=== PATIENT | male | born 1950 | race Hispanic/Latino ===

== ENCOUNTER 2017-07-20 23:26 | Observation (INO) | payer OTHER ==
[2017-07-21 00:41] LABS: Absolute Lymphocytes (CBC) 1.1 K/uL (0.7-4.9); Absolute Monocytes 0.9 K/uL (0.1-1.3); Absolute Neutrophil 8.4 K/uL (1.8-8.0); Basophils % 0.4 % (0-1.3); Eosinophils % 0.2 % (0-4.4); Hematocrit 30.2 % (39.6-49.0); Lymphocytes % 10.2 % (15.3-44.8); MCV 93.4 fL (80-100); RBC Red Blood Cell Count 3.23 M/uL (4.33-5.43)
[2017-07-21 00:45] LABS: Protime INR 1.15
[2017-07-21] MEDS ORDERED: ONDANSETRON 4 MG/2 ML VIAL ONE (00:50)
[2017-07-21] MEDS ORDERED: MORPHINE 4 MG/ML SYR ONE (00:50)
[2017-07-21] MEDS ORDERED: NA CHLORIDE 0.9% 1,000 ML ONE (00:50)
[2017-07-21 01:13] LABS: Bicarbonate 29 mEq/L (21-31); Glucose Level 110 mg/dL (65-120); Potassium 3.7 mEq/L (3.6-5.0); Sodium Level 132 mEq/L (135-145)
[2017-07-21 01:16] LABS: ALT/SGPT 18 IU/L (10-60); AST/SGOT 15 IU/L (10-42); Albumin 3.6 g/dL (3.2-5.5); Alkaline Phosphatase 90 IU/L (42-121); BUN Blood Urea Nitrogen 11 mg/dL (6-20); Bilirubin Total 0.2 mg/dL (0.3-1.2); Glomerular Filtration Rate > 90 mL/min (=/>90); Protein, Total 6.9 g/dL (6.0-8.3)
--- NOTE | 2017-07-21 02:07 | EDPHYS ---
Physician Documentation [facility] Name: Willian De Age: 67 yrs Sex: Male : 1950 Arrival Date: 07/20/2017 Time: 23:28 Bed 15 Private MD: Gelacio Parks R ED Physician Randy Langston HPI: 07/21 00:07 This 67 yrs old Male presents to ER via Ambulatory with complaints of Arm Pain sivan - Swelling. 00:07 The patient or guardian complains of injury, pain, swelling. The complaints affect the sivan dorsal aspect of left forearm. Context: The problem was sustained at an unknown location. Onset: The symptoms/episode began/occurred 2 month(s) ago. Treatment prior to arrival includes: no previous treatment. Modifying factors: The symptoms are alleviated by remaining still, the symptoms are aggravated by movement, bending arm. Associated signs and symptoms: The patient has no apparent associated signs or symptoms. Severity of symptoms: At their worst the symptoms were mild, moderate, in the emergency department the symptoms are unchanged. The patient has not experienced similar symptoms in the past. Historical: - Allergies: 07/20 23:48 No Known Allergies; aa1 - PMHx: 23:48 CVA; Hypertension; Anxiety; lung cancer; chemotherapy; aa1 - PSHx: 23:48 None; aa1 - Immunization history:: Pneumococcal vaccine is up to date, Flu vaccine is up to date. - Social history:: Smoking status: Patient/guardian denies using tobacco. - Family history:: not pertinent. ROS: 07/21 00:07 Constitutional: Negative for fever, chills, and weight loss, Eyes: Negative for injury, sivan pain, redness, and discharge, ENT: Negative for injury, pain, and discharge, Neck: Negative for injury, pain, and swelling, Cardiovascular: Negative for chest pain, palpitations, and edema, Respiratory: Negative for shortness of breath, cough, wheezing, and pleuritic chest pain, Abdomen/GI: Negative for abdominal pain, nausea, vomiting, diarrhea, and constipation, Back: Negative for injury and pain, : Negative for injury, bleeding, discharge, and swelling, Neuro: Negative for headache, weakness, numbness, tingling, and seizure, Psych: Negative for depression, anxiety, suicide ideation, homicidal ideation, and hallucinations, Allergy/Immunology: Negative for hives, rash, and allergies, Endocrine: Negative for neck swelling, polydipsia, polyuria, polyphagia, and marked weight changes, Hematologic/Lymphatic: Negative for swollen nodes, abnormal bleeding, and unusual bruising. MS/extremity: Positive for pain, swelling, tenderness, warmth, of the dorsal aspect of left forearm. Exam: 00:07 Constitutional: This is a well developed, well nourished patient who is awake, alert, sivan and in no acute distress. Head/Face: Normocephalic, atraumatic. Eyes: Pupils equal round and reactive to light, extra-ocular motions intact. Lids and lashes normal. Conjunctiva and sclera are non-icteric and not injected. Cornea within normal limits. Periorbital areas with no swelling, redness, or edema. ENT: Nares patent. No nasal discharge, no septal abnormalities noted. Tympanic membranes are normal and external auditory canals are clear. Oropharynx with no redness, swelling, or masses, exudates, or evidence of obstruction, uvula midline. Mucous membranes moist. Neck: Trachea midline, no thyromegaly or masses palpated, and no cervical lymphadenopathy. Supple, full range of motion without nuchal rigidity, or vertebral point tenderness. No Meningismus. Chest/axilla: Normal chest wall appearance and motion. Nontender with no deformity. No lesions are appreciated. Cardiovascular: Regular rate and rhythm with a normal S1 and S2. No gallops, murmurs, or rubs. Normal PMI, no JVD. No pulse deficits. Respiratory: Lungs have equal breath sounds bilaterally, clear to auscultation and percussion. No rales, rhonchi or wheezes noted. No increased work of breathing, no retractions or nasal flaring. Abdomen/GI: Soft, non-tender, with normal bowel sounds. No distension or tympany. No guarding or rebound. No evidence of tenderness throughout. Back: No spinal tenderness. No costovertebral tenderness. Full range of motion. Male : Normal genitalia with no discharge or lesions. Skin: Warm, dry with normal turgor. Normal color with no rashes, no lesions, and no evidence of cellulitis. Neuro: Awake and alert, GCS 15, oriented to person, place, time, and situation. Cranial nerves II-XII grossly intact. Motor strength 5/5 in all extremities. Sensory grossly intact. Cerebellar exam normal. Normal gait. Psych: Awake, alert, with orientation to person, place and time. Behavior, mood, and affect are within normal limits. 00:07 Musculoskeletal/extremity: ROM: full active range of motion, full passive range of motion, Circulation is intact in all extremities. Sensation intact. Compartment Syndrome exam of affected extremity: is normal. DVT Exam: negative Homans' sign noted on exam, no appreciated bluish discoloration, pain, swelling, tenderness, erythema, that is mild, increased warmth, of the left arm. Vital Signs: 07/20 23:48 BP 144 / 82; Pulse 105; Resp 20; Temp 98.4; Pulse Ox 99% on R/A; Weight 78.02 kg; aa1 Height 6 ft. 1 in. (185.42 cm); Pain 0/10; 07/21 00:43 BP 127 / 73; Pulse 93; Resp 18; Pulse Ox 98% on R/A; aa1 01:26 BP 133 / 86; Pulse 97; Resp 18; Pulse Ox 99% on R/A; mt 02:30 BP 128 / 77; Pulse 95; Resp 18; Pulse Ox 98% on R/A; Pain 0/10; aa1 07/20 23:48 Body Mass Index 22.69 (78.02 kg, 185.42 cm) [facility] MDM: 00:04 Patient medically screened. [facility] 00:11 Data reviewed: vital signs, nurses notes, lab test result(s), radiologic studies, plain sivan films, ultrasound. 07/21 00:07 Order name: CBC with Diff [facility] 07/21 00:07 Order name: Comprehensive Metabolic Panel [facility] 07/21 00:07 Order name: PT-INR [facility] 07/21 00:07 Order name: Ptt, Activated [facility] 07/21 00:07 Order name: Blood Culture Adult (2) [facility] 07/21 00:44 Order name: CBC with Automated Diff [facility] 07/21 00:07 Order name: Forearm Left XRAY [facility] 07/21 00:07 Order name: US Extremity Venous Uni Ltd [facility] 07/21 00:54 Order name: Protime (+INR); Complete Time: 02:04 EDMS 07/21 00:54 Order name: PTT, Activated Partial Thromb; Complete Time: 02:04 EDMS 07/21 01:13 Order name: Comprehensive Metabolic Panel; Complete Time: 02:04 EDMS 07/21 04:10 Order name: Manual Differential EDMS Administered Medications: 00:35 CANCELLED (med not available): fentaNYL (PF) 25 mcg IVP once aa1 00:42 Drug: morphine 2 mg Route: IVP; Site: right antecubital; aa1 01:45 Follow up: Response: No adverse reaction; Pain is decreased aa1 00:43 Drug: NS 0.9% 1000 ml Route: IV; Rate: 125 ml/hr; Site: right antecubital; aa1 04:07 Follow up: IV Status: Infusion continued upon admission aa1 00:43 Drug: Zofran 4 mg Route: IVP; Site: right antecubital; aa1 01:45 Follow up: Response: No adverse reaction aa1 02:20 Drug: vancoMYCIN 1 grams Route: IVPB; Infused Over: 2 hrs; Site: right antecubital; aa1 05:00 Follow up: IV Status: Completed infusion aa1 05:01 Drug: Zosyn 3.375 grams Route: IVPB; Infused Over: 60 mins; Site: right antecubital; aa1 05:34 Follow up: IV Status: Completed infusion aa1 Disposition: 07/21/17 02:06 Hospitalization ordered by Gelacio Parks for Observation. Preliminary diagnosis are Cellulitis and acute lymphangitis of other parts of limb, Laceration with foreign body of left forearm. - Bed requested for Telemetry/MedSurg (observation). - Status is Observation. hj - Condition is Stable. - Problem is new. - Symptoms have improved. UTI on Admission? No Signatures: Dispatcher [employer] EDMS Arina Ibarra RN RN kl Kern, Alissa, RN RN aa Randy Langston MD MD cha Joaquin, Henry, RN RN Corrections: (The following items were deleted from the chart) 00:35 00:07 fentaNYL (PF) 25 mcg IVP once ordered. sivan bone
--- NOTE | 2017-07-21 02:07 | ER ---
Nurse's Notes [facility] Name: Willian De Age: 67 yrs Sex: Male : 1950 Arrival Date: 07/20/2017 Time: 23:28 Bed 15 Private MD: Gelacio Parks R Diagnosis: Cellulitis and acute lymphangitis of other parts of limb;Laceration with foreign body of left forearm Presentation: 07/20 23:47 Presenting complaint: Patient states: redness and swelling to L forearm for past aa1 several days. Denies injury. Transition of care: patient was not received from another setting of care. Onset of symptoms was July 16, 2017. Care prior to arrival: None. 23:47 Method Of Arrival: Ambulatory aa1 23:47 Acuity: JARVIS 3 aa1 Historical: - Allergies: 23:48 No Known Allergies; aa1 - PMHx: 23:48 CVA; Hypertension; Anxiety; lung cancer; chemotherapy; aa1 - PSHx: 23:48 None; aa1 - Immunization history:: Pneumococcal vaccine is up to date, Flu vaccine is up to date. - Social history:: Smoking status: Patient/guardian denies using tobacco. - Family history:: not pertinent. Screenin:40 Abuse screen: Denies threats or abuse. Denies injuries from another. Nutritional aa1 screening: No deficits noted. Tuberculosis screening: No symptoms or risk factors identified. Fall Risk None identified. Assessment: 23:40 General: Appears in no apparent distress. comfortable, Behavior is calm, cooperative, aa1 appropriate for age. Pain: Denies pain. Neuro: Level of Consciousness is awake, alert, obeys commands, Oriented to person, place, time, situation, Moves all extremities. Full function Gait is steady. Respiratory: Airway is patent Respiratory effort is even, unlabored, Respiratory pattern is regular, symmetrical. GI: No signs and/or symptoms were reported involving the gastrointestinal system. : No signs and/or symptoms were reported regarding the genitourinary system. EENT: No signs and/or symptoms were reported regarding the EENT system. Derm: Skin is intact, is healthy with good turgor, Skin is pink, warm \T\ dry. Musculoskeletal: Circulation, motion, and sensation intact. Capillary refill < 3 seconds. 23:40 Derm: redness noted to left forearm with mild swelling. aa1 03/22 00:45 Reassessment: Patient appears in no apparent distress at this time. Patient and/or aa1 family updated on plan of care and expected duration. Pain level reassessed. Patient is alert, oriented x 3, equal unlabored respirations, skin warm/dry/pink. Awaiting provider reassessment. 01:30 Reassessment: Patient appears in no apparent distress at this time. Patient and/or aa1 family updated on plan of care and expected duration. Pain level reassessed. Patient is alert, oriented x 3, equal unlabored respirations, skin warm/dry/pink. Awaiting admission. 02:30 Reassessment: Patient appears in no apparent distress at this time. Patient and/or aa1 family updated on plan of care and expected duration. Pain level reassessed. Patient is alert, oriented x 3, equal unlabored respirations, skin warm/dry/pink. Pt placed in ER Hold. 07:24 General: Appears in no apparent distress. uncomfortable, Behavior is calm, cooperative, hj appropriate for age. Pain: Complains of pain in left arm and dorsal aspect of left forearm. Neuro: Level of Consciousness is awake, alert, obeys commands, Oriented to person, place, time, situation. Cardiovascular: Capillary refill < 3 seconds Patient's skin is warm and dry. Respiratory: Airway is patent Respiratory effort is even, unlabored, Respiratory pattern is regular, symmetrical. GI: No signs and/or symptoms were reported involving the gastrointestinal system. : No signs and/or symptoms were reported regarding the genitourinary system. EENT: No signs and/or symptoms were reported regarding the EENT system. Derm: No signs and/or symptoms reported regarding the dermatologic system. Musculoskeletal: No signs and/or symptoms reported regarding the musculoskeletal system. Vital Signs: 07/20 23:48 BP 144 / 82; Pulse 105; Resp 20; Temp 98.4; Pulse Ox 99% on R/A; Weight 78.02 kg; aa1 Height 6 ft. 1 in. (185.42 cm); Pain 0/10; 07/21 00:43 BP 127 / 73; Pulse 93; Resp 18; Pulse Ox 98% on R/A; aa1 01:26 BP 133 / 86; Pulse 97; Resp 18; Pulse Ox 99% on R/A; mt 02:30 BP 128 / 77; Pulse 95; Resp 18; Pulse Ox 98% on R/A; Pain 0/10; aa1 07/20 23:48 Body Mass Index 22.69 (78.02 kg, 185.42 cm) aa1 ED Course: 07/20 23:28 Patient arrived in ED. am2 23:28 Gelacio Parks MD is Private Physician. am2 23:38 Arm band placed on right wrist. Patient placed in an exam room, on a stretcher. aa1 23:40 Patient has correct armband on for positive identification. Bed in low position. Call aa1 light in reach. Pulse ox on. NIBP on. 23:46 Lashonda Yoder RN is Primary Nurse. aa1 23:47 Triage completed. aa1 07/21 00:04 Randy Langston MD is Attending Physician. sivan 00:10 Initial lab(s) drawn, by az, sent to lab. First set of blood cultures drawn by me. aa1 Inserted saline lock: 20 gauge in right antecubital area, using aseptic technique. Blood collected. 00:25 Second set of blood cultures drawn by me. aa1 00:43 X-ray completed. Portable x-ray completed in exam room. Patient tolerated procedure kw well. 02:05 Gelacio Parks MD is Hospitalizing Provider. [facility] 02:30 No provider procedures requiring assistance completed. Patient admitted, IV remains in aa1 place. 07:02 Report received from TORY Gallego. hj Administered Medications: 00:35 CANCELLED (med not available): fentaNYL (PF) 25 mcg IVP once aa1 00:42 Drug: morphine 2 mg Route: IVP; Site: right antecubital; aa1 01:45 Follow up: Response: No adverse reaction; Pain is decreased aa1 00:43 Drug: NS 0.9% 1000 ml Route: IV; Rate: 125 ml/hr; Site: right antecubital; aa1 04:07 Follow up: IV Status: Infusion continued upon admission aa1 00:43 Drug: Zofran 4 mg Route: IVP; Site: right antecubital; aa1 01:45 Follow up: Response: No adverse reaction aa1 02:20 Drug: vancoMYCIN 1 grams Route: IVPB; Infused Over: 2 hrs; Site: right antecubital; aa1 05:00 Follow up: IV Status: Completed infusion aa1 05:01 Drug: Zosyn 3.375 grams Route: IVPB; Infused Over: 60 mins; Site: right antecubital; aa1 05:34 Follow up: IV Status: Completed infusion aa1 Outcome: 02:06 Decision to Hospitalize by Provider. [facility] 02:30 Admitted to ER Hold. Please see [facility] for further documentation. aa1 02:30 Condition: good 02:30 Instructed on the need for admit, Demonstrated understanding of instructions. 08:09 Patient left the ED. hj Signatures: Lashonda Yoder, RN RN aa1 Randy Langston MD MD cha Whitley, Kimberlee kw Joaquin, Henry, RN RN Racquel Ham Moriah mt
[2017-07-21] MEDS ORDERED: ACETAMINOPHEN 500 MG TAB PO PRN (02:11)
[2017-07-21] MEDS ORDERED: ONDANSETRON 4 MG/2 ML VIAL IV PRN (02:11)
[2017-07-21] MEDS ORDERED: VANCOMYCIN/NS 1 gm 1 GM/250 ML BAG ONE (02:27)
[2017-07-21 04:10] LABS: Blood Morphology Comment NOT SEEN (NOT SEEN); Platelet Estimate ADEQ
[2017-07-21] MEDS ORDERED: PIPER/TAZO/NS 3.375gm 3.375 GM/100 ML BAG ONE (04:18)
[2017-07-21 04:51] VITALS: BMI 22.6
[2017-07-21] MEDS ORDERED: PIPER/TAZO/NS 3.375gm 3.375 GM/100 ML BAG IVPB SCH (06:00)
--- NOTE | 2017-07-21 08:56 | RAD REPORT ---
EXAM DESCRIPTION: RAD - Forearm Left - 07/21/2017 12:46 am CLINICAL HISTORY: Pain and swelling to left forearm. COMPARISON: None. FINDINGS: Soft tissue swelling is seen along the palmar soft tissues of the proximal forearm. No fra cture, dislocation or aggressive marrow lesion. Prominent olecranon spur seen. IMPRESSION: Mild to moderate soft tissue swelling proximal left forearm palmar soft tissues.
[2017-07-21] MEDS ORDERED: VANCOMYCIN 1GM/D5W 1 GM/200 ML BAG IV SCH (09:00)
--- NOTE | 2017-07-21 09:00 | RAD REPORT ---
EXAM DESCRIPTION: VAS - Extremity Venous Uni Ltd - 07/21/2017 1:53 am CLINICAL HISTORY: Left upper extremity swelling. COMPARISON: None. FINDINGS: Left upper extremity venous system was interrogated with Doppler technique. Normal flow, c ompressibility and augmentation was noted. There is no DVT present.At the site of palpable abnormalit y in the left forearm, a superficial thrombosed vein is suspected. IMPRESSION: No evidence of left upper extremity deep venous thrombosis. Superficial thrombosed vein suspected in the left forearm suggesting thrombophlebitis.
[2017-07-21] MEDS: NA CHLORIDE 0.9% 1,000 ML IV SCH ×2 (10:17→13:00)
[2017-07-21] MEDS: MORPHINE 2 MG/ML SYR IV PRN ×2 (10:18→20:14)
[2017-07-21] MEDS: FAMOTIDINE 20 MG/2 ML VIAL IV SCH ×2 (10:18→20:14)
[2017-07-21] MEDS: PIPER/TAZO/NS 3.375gm 3.375 GM/100 ML BAG IVPB SCH ×2 (10:20→17:41)
[2017-07-21] MEDS: VANCOMYCIN 1.5 GM in NA CHLORIDE 0.9% 500 ML IVPB SCH (16:49)
[2017-07-21] MEDS ORDERED: ALPRAZOLAM 0.5 MG TABLET PO PRN (18:20)
[2017-07-21] MEDS ORDERED: GUAIFENESIN PO PRN (18:20)
[2017-07-21] MEDS ORDERED: CODEINE PHOSPHATE PO PRN (18:20)
[2017-07-21] MEDS ORDERED: GUAIFENESIN/CODEINE 5ML UCUP PO PRN (18:29)
[2017-07-21] MEDS ORDERED: HOME MED [ALBUTEROL INHALER 60 PUFF/8 GM] IH SCH (18:45)
[2017-07-21] MEDS: ATORVASTATIN 20 MG TAB PO SCH (20:14)
[2017-07-21] MEDS: DEXAMETHASONE 4 MG TAB PO SCH (20:14)
[2017-07-21 20:18] LABS: Urine Appearance CLEAR; Urine Bilirubin NEGATIVE (NEG); Urine Blood NEGATIVE (NEG); Urine Color YELLOW; Urine Glucose NEGATIVE (NEG); Urine Protein NEGATIVE (NEG); Urine Urobilinogen 0.2 mg/dL (0.2-1.0); Urine pH 7.5 (5.0-7.0)
[2017-07-21 20:21] LABS: Urine Microscopic Reflex NO UMIC
--- NOTE | 2017-07-21 22:30 | CON ---
Date of Consultation: 07/21/2017 Reason For Services: Left forearm abscess. History Of Present Illness: This is a case of a 67-year-old patient, who comes to us with a cellulit is, swelling and increased temperature over the left proximal forearm. The patient states previously , he had an IV in that region. He got swelling, got red, got warm and diagnosed with cholecystitis, also thrombophlebitis and admitted to the hospital. He received chemotherapy through his the veins. He has no Port-A-Cath. He denies any dysuria, hematuria, hematochezia, or melena. He denies any re cent traveling out of the country. He denies any trauma over that area other than previous IVs. Past Medical History: Include lung cancer, hypertension, and CVA. Allergies: NONE. Family History: Noncontributory. Medications: Reviewed including chemotherapy. Review: Constitutional: Denies any fever. Respiratory: Denies any shortness of breath. Skin: As above. Gastrointestinal: Denies any melena or hematochezia. Physical Examination: General: The patient is awake and alert. HEENT: Pupils are anicteric. Neck: Supple. Lungs: Bilateral breath sounds. Abdomen: Soft and depressible. Extremities: Over the left proximal forearm, the patient has an area of induration about 7 x 7 cm wi th may be some component with thrombophlebitis. It is warm and has fluctuance present at the beginni ng of an abscess. No open wounds in that area. Peripheral pulse is still present. No cyanosis of t he hand. Laboratory Data: Blood work shows WBC count 7.4, hemoglobin of 10.4. INR is 1.15. Potassium 3.7. Forearm x-rays interpreted by Dr. Em as [id number] soft tissue swelling of the proximal left forearm. Venous study of the extremity shows the finding consistent with possible thrombophlebitis o jose r the area of concern. Assessment: This is a 67-year-old patient with thrombophlebitis in the left proximal forearm with ce llulitis and possible abscess. Incision and drainage of that area fully explained to the patient, wh ich include, but are not limited to infection, bleeding, damage to adjacent structures, anesthesia co mplication, nonhealing wound, AR, and even . He has fluctuance in that area consistent with an abscess with increased temperature and erythema. He understands he may require wound care. JOSTIN/MOR Voice ID: [id number] Report ID: [id number]
[2017-07-22] MEDS: MORPHINE 2 MG/ML SYR IV PRN (00:15)
[2017-07-22] MEDS: PIPER/TAZO/NS 3.375gm 3.375 GM/100 ML BAG IVPB SCH ×3 (00:15→16:41)
[2017-07-22] MEDS: NA CHLORIDE 0.9% 1,000 ML IV SCH ×3 (00:16→22:07)
[2017-07-22] MEDS: VANCOMYCIN 1.5 GM in NA CHLORIDE 0.9% 500 ML IVPB SCH ×2 (02:51→13:47)
[2017-07-22 05:23] LABS: Absolute Lymphocytes (CBC) 0.5 K/uL (0.7-4.9); Absolute Monocytes 0.2 K/uL (0.1-1.3); Absolute Neutrophil 10.2 K/uL (1.8-8.0); Basophils % 0.1 % (0-1.3); Hematocrit 31.2 % (39.6-49.0); Lymphocytes % 4.8 % (15.3-44.8); MCH 32.5 pg (27.0-35.0); MCV 92.5 fL (80-100); MPV 7.1 fL (7.6-11.3); Monocytes % 1.7 % (3.3-12.3); RBC Red Blood Cell Count 3.38 M/uL (4.33-5.43)
[2017-07-22 05:51] LABS: BUN Blood Urea Nitrogen 8 mg/dL (6-20); Bicarbonate 25 mEq/L (21-31); Glomerular Filtration Rate > 90 mL/min (=/>90); Glucose Level 147 mg/dL (65-120); Potassium 4.8 mEq/L (3.6-5.0); Sodium Level 133 mEq/L (135-145)
[2017-07-22] MEDS: PANTOPRAZOLE 40MG TABLET PO SCH (07:30)
--- NOTE | 2017-07-22 07:47 | HP ---
Date of Admission: 07/21/2017 Chief Complaint: Pain, left forearm. History Of Present Illness: A 67-year-old male who is known to have lung cancer, who is on Oncology Service, was brought to the emergency room because of pain, swelling of the left forearm. The patien t was diagnosed to have possible cellulitis, possible foreign body in the vein. The patient denied any history of fever, chills, rigors. Past Medical History: Positive for COPD, recently diagnosed lung cancer. He also has history of pre vious stroke and hypertension. Family History: Noncontributory. Personal History: The patient is a previous smoker. Allergies: NONE. Review of Systems: The patient denies any chest pain, hemoptysis. Physical Examination: General: Reveals a 67-year-old male, fully alert. HEENT: Negative. Neck: Supple. JVD negative. Chest: Scattered wheezes. Heart: Regular. Abdomen: Soft. Extremities: There is about 3-4 inches long area of induration and redness and tenderness over elbow area on the ventral side. Radial pulses present. Laboratory: White count normal. Chem profile normal. Venous study, superficial phlebitis. Assessment: 1.Possible superficial phlebitis. 2.Rule out foreign body. 3.Lung cancer, on chemotherapy. 4.Chronic obstructive pulmonary disease. 5.Old cerebrovascular accident. 6.Hypertension. Plan: The patient is due to be seen and evaluated and treated by Dr. Patel as a surgical consult to see whether he has a foreign body left in the vein, which has not been demonstrated on the x-ray o r the venous study. ESTELLE/MOR Voice ID: [id number]
[2017-07-22] MEDS: VALSARTAN 160 MG TAB PO SCH (08:09)
[2017-07-22] MEDS: DEXAMETHASONE 4 MG TAB PO SCH ×2 (08:09→22:08)
[2017-07-22] MEDS: ASPIRIN EC 81 MG TAB PO SCH (08:09)
[2017-07-22] MEDS: FAMOTIDINE 20 MG/2 ML VIAL IV SCH ×2 (08:10→22:08)
[2017-07-22] MEDS ORDERED: LIDOCAINE 1% MPF 5 ML VIAL SQ ONE (15:00)
[2017-07-22] MEDS: ATORVASTATIN 20 MG TAB PO SCH (22:08)
[2017-07-23] MEDS: PIPER/TAZO/NS 3.375gm 3.375 GM/100 ML BAG IVPB SCH ×2 (00:50→09:14)
--- NOTE | 2017-07-23 00:53 | OP ---
Date of Procedure: 07/22/2017 Surgeon: Bhupinder Patel MD Preoperative Diagnoses: Lung cancer with a thrombophlebitis of left forearm and also abscess and leo lulitis of the proximal forearm. Postoperative Diagnoses: Lung cancer with a thrombophlebitis of left forearm and also abscess and ce llulitis of the proximal forearm. Procedures: Incision and drainage of a left forearm abscess. Anesthesia: Local. Complication: None. Packing: Wet-to-dry. Specimen: Culture. Indications: This is the case of a 67-year-old patient, who comes to us, on chemotherapy. He has a lump on the left forearm with erythema, increased temperature with tenderness, venous Doppler was don e previously shows thrombophlebitis. Also the patient has some redness over the area with fluctuance consistent with an abscess. He is not getting better today. It is worse, so we offer him incision and drainage with benefits, alternatives, and risks including, but not limited to infection, bleeding , damage to adjacent structures, anesthesia complication, nonhealing wound, AZ, and even . He a lso understands this may not relieve any symptoms. He might need more than one surgical intervention . He was also explained that if the does not improve, he may even have to have . Description Of Procedure: The patient was placed in supine position. The left forearm was prepped a nd draped in a sterile fashion. Lidocaine 1% plain injected for local anesthetic, followed by sharp incision of the skin. This was taken down to the subcutaneous tissue. Muscle looks intact. Fascia looked intact viable. A small amount of pus was removed from the area with an irrigation done after we re-culture the area. Hemostasis obtained and the area was packed with wet-to-dry dress ing. The patient tolerated the procedure well. The patient was sent to recovery room in stable cond ition. The patient left in their own room in stable condition. Beginning of this, time-out was call ed before the procedure was done. The patient may be discharged with antibiotics by mouth and follow up in my office in 1 week. JOSTIN/MOR Voice ID: [id number] Report ID: [id number]
[2017-07-23] MEDS: NA CHLORIDE 0.9% 1,000 ML IV SCH (04:00)
[2017-07-23 08:11] VITALS: BP 136/75; TEMP 97.2
[2017-07-23] MEDS: PANTOPRAZOLE 40MG TABLET PO SCH (09:13)
[2017-07-23] MEDS: DEXAMETHASONE 4 MG TAB PO SCH (09:13)
[2017-07-23] MEDS: ASPIRIN EC 81 MG TAB PO SCH (09:13)
[2017-07-23] MEDS: VALSARTAN 160 MG TAB PO SCH (09:13)
[2017-07-23] MEDS: FAMOTIDINE 20 MG/2 ML VIAL IV SCH (09:13)
[2017-07-23 12:08] VITALS: O2SAT 98
[2017-07-23] MEDS ORDERED: VANCOMYCIN 1.5 GM in NA CHLORIDE 0.9% 500 ML IVPB SCH (14:00)
--- NOTE | 2017-08-22 01:09 | DS ---
Date of Discharge: 07/23/2017 Final Diagnoses: 1.Abscess, left arm. 2.Chronic obstructive pulmonary disease. 3.Recently diagnosed lung cancer. 4.Old cerebrovascular accident. Hospital Course: A 67-year-old male was brought to the emergency room because of pain and swelling. The patient initially thought to have foreign body and cellulitis, however there was a fluctuant mas s. This was incised and drained by Dr. Patel. There was no evidence of foreign body. The patien t was continued on IV antibiotics and discharged on oral antibiotic on 07/23/2017. The patient had no further complications. Laboratory Data: Please refer to the chart. ESTELLE/MOR Voice ID: [id number] Report ID: [id number]
== END 2017-07-23 11:52 | disposition home or self-care (01) ==
LOC: ER 23:26 → ERHOLD 07-21 02:16 → 4TH 07-21 05:43
PROVIDERS: ADMIT Internal Medicine; ATTEND Internal Medicine
PROC: 0J9H0ZZ Drainage of Left Lower Arm Subcutaneous Tissue and Fascia, Open Approach (ICD-10-PCS; principal; 2017-07-22)
DX: I80.8 Phlebitis and thrombophlebitis of other sites (principal); L02.414 Cutaneous abscess of left upper limb; J44.9 Chronic obstructive pulmonary disease, unspecified; C34.90 Malignant neoplasm of unspecified part of unspecified bronchus or lung; Z86.73 Personal history of transient ischemic attack (TIA), and cerebral infarction without residual deficits; Z87.891 Personal history of nicotine dependence
CPT/HCPCS: 10060; 36415 ×2; 73090; 80048; 80053; 80202; 81003; 82962 ×3; 85025 ×2; 85610; 85730; 87040 ×2; 87070; 87075; 87205; 93971; 96361; 96365; 96366; 96367; 96375; 99285; G0378 ×2; J2270 ×3; J2405; J2543 ×4; J3370; J7030 ×4

== ENCOUNTER 2017-08-25 22:07 | Inpatient (IN) | payer OTHER ==
[2017-08-25] MEDS ORDERED: NA CHLORIDE 0.9% 1,000 ML ONE (22:35)
[2017-08-25] MEDS ORDERED: ASPIRIN EC 81 MG TAB PO ONE (22:43)
[2017-08-25] MEDS ORDERED: ONDANSETRON 4 MG/2 ML VIAL ONE (22:44)
[2017-08-25 22:47] LABS: Absolute Lymphocytes (CBC) 1.2 K/uL (0.7-4.9); Absolute Monocytes 0.3 K/uL (0.1-1.3); Absolute Neutrophil 43.5 K/uL (1.8-8.0); Basophils % 0.1 % (0-1.3); Hematocrit 26.8 % (39.6-49.0); Lymphocytes % 2.6 % (15.3-44.8); MCH 31.7 pg (27.0-35.0); MCV 92.2 fL (80-100); MPV 6.8 fL (7.6-11.3); Monocytes % 0.7 % (3.3-12.3)
[2017-08-25 23:07] LABS: Bicarbonate 24 mEq/L (21-31); Glucose Level 113 mg/dL (65-120); Lipase 19 U/L (22-51); Potassium 3.9 mEq/L (3.6-5.0); Sodium Level 131 mEq/L (135-145)
[2017-08-25 23:13] LABS: ALT/SGPT 13 IU/L (10-60); AST/SGOT 21 IU/L (10-42); Albumin 4.1 g/dL (3.2-5.5); Alkaline Phosphatase 71 IU/L (42-121); BUN Blood Urea Nitrogen 12 mg/dL (6-20); Bilirubin Direct 0.1 mg/dL (0-0.2); Bilirubin Total 0.4 mg/dL (0.3-1.2); CKMB Creatine Kinase MB 2.2 ng/ml (0.3-4.0); Creatine Phosphokinase 59 IU/L (22-269); Magnesium 1.9 mg/dL (1.8-2.5); Protein, Total 7.5 g/dL (6.0-8.3); Protime INR 1.01
[2017-08-25 23:34] LABS: Blood Morphology Comment NOT SEEN (NOT SEEN); Platelet Estimate ADEQ
[2017-08-25 23:41] LABS: Urine Blood NEGATIVE (NEG); Urine Glucose NEGATIVE (NEG); Urine Protein NEGATIVE (NEG); Urine Specific Gravity <1.005 (1.005-1.030)
[2017-08-25 23:42] LABS: Thyroid Stimulating Hormone 1.47 uIU/mL (0.34-5.60)
--- NOTE | 2017-08-26 00:08 | EDPHYS ---
Physician Documentation [facility] Name: Willian De Age: 67 yrs Sex: Male : 1950 Arrival Date: 08/25/2017 Time: 22:09 Bed 2 Private MD: ED Physician Randy Langston HPI: 08/25 22:42 This 67 yrs old Male presents to ER via Ambulatory with complaints of Chest sivan Pain. 22:42 The patient or guardian reports chest pain that is located primarily in the substernal sivan area. Onset: 4 day(s) ago. The pain does not radiate. Associated signs and symptoms: Pertinent positives: nausea, vomiting. The chest pain is described as sharp. Duration: The patient or guardian reports multiple episodes, with no pattern. Modifying factors: The symptoms are alleviated by nothing. the symptoms are aggravated by nothing. Severity of pain: At its worst the pain was moderate in the emergency department the pain is unchanged. The patient has experienced similar episodes in the past, a few times. Historical: - Allergies: 22:22 No Known Allergies; fc - Home Meds: 22:22 Unable to obtain [Active]; fc - PMHx: 22:22 Anxiety; chemotherapy; CVA; Hypertension; Lung Cancer; fc - PSHx: 22:22 Arm Surg; fc - Immunization history:: Last tetanus immunization: up to date. - Social history:: Smoking status: Patient/guardian denies using tobacco, the patient reports quitting approximately .5 years ago. - Family history:: not pertinent. ROS: 22:42 Constitutional: Negative for fever, chills, and weight loss, Eyes: Negative for injury, sivan pain, redness, and discharge, ENT: Negative for injury, pain, and discharge, Neck: Negative for injury, pain, and swelling, Respiratory: Negative for shortness of breath, cough, wheezing, and pleuritic chest pain, Abdomen/GI: Negative for abdominal pain, nausea, vomiting, diarrhea, and constipation, Back: Negative for injury and pain, : Negative for injury, bleeding, discharge, and swelling, MS/Extremity: Negative for injury and deformity, Skin: Negative for injury, rash, and discoloration, Neuro: Negative for headache, weakness, numbness, tingling, and seizure, Psych: Negative for depression, anxiety, suicide ideation, homicidal ideation, and hallucinations, Allergy/Immunology: Negative for hives, rash, and allergies, Endocrine: Negative for neck swelling, polydipsia, polyuria, polyphagia, and marked weight changes, Hematologic/Lymphatic: Negative for swollen nodes, abnormal bleeding, and unusual bruising. 22:42 Cardiovascular: Positive for chest pain, of the anterior aspect of left upper chest and left breast. Exam: 22:42 Constitutional: This is a well developed, well nourished patient who is awake, alert, sivan and in no acute distress. Head/Face: Normocephalic, atraumatic. Eyes: Pupils equal round and reactive to light, extra-ocular motions intact. Lids and lashes normal. Conjunctiva and sclera are non-icteric and not injected. Cornea within normal limits. Periorbital areas with no swelling, redness, or edema. ENT: Nares patent. No nasal discharge, no septal abnormalities noted. Tympanic membranes are normal and external auditory canals are clear. Oropharynx with no redness, swelling, or masses, exudates, or evidence of obstruction, uvula midline. Mucous membranes moist. Neck: Trachea midline, no thyromegaly or masses palpated, and no cervical lymphadenopathy. Supple, full range of motion without nuchal rigidity, or vertebral point tenderness. No Meningismus. Chest/axilla: Normal chest wall appearance and motion. Nontender with no deformity. No lesions are appreciated. Cardiovascular: Regular rate and rhythm with a normal S1 and S2. No gallops, murmurs, or rubs. Normal PMI, no JVD. No pulse deficits. Respiratory: Lungs have equal breath sounds bilaterally, clear to auscultation and percussion. No rales, rhonchi or wheezes noted. No increased work of breathing, no retractions or nasal flaring. Abdomen/GI: Soft, non-tender, with normal bowel sounds. No distension or tympany. No guarding or rebound. No evidence of tenderness throughout. Back: No spinal tenderness. No costovertebral tenderness. Full range of motion. Male : Normal genitalia with no discharge or lesions. MS/ Extremity: Pulses equal, no cyanosis. Neurovascular intact. Full, normal range of motion. Neuro: Awake and alert, GCS 15, oriented to person, place, time, and situation. Cranial nerves II-XII grossly intact. Motor strength 5/5 in all extremities. Sensory grossly intact. Cerebellar exam normal. Normal gait. Psych: Awake, alert, with orientation to person, place and time. Behavior, mood, and affect are within normal limits. 22:42 Skin: Appearance: Color: pale, Temperature: normal temperature, Moisture: normal moisture, petechiae, not noted, ecchymosis, not noted, flushing, not noted, diaphoresis is not appreciated. Vital Signs: 22:10 BP 162 / 94; Pulse 119; Resp 16; Temp 98.2(O); Pulse Ox 100% on R/A; Weight 78.47 kg fc (R); Height 6 ft. 2 in. (187.96 cm) (R); Pain 5/10; 08/26 00:40 BP 137 / 82; Pulse 97; Resp 16; Temp 98.2(O); Pulse Ox 100% on R/A; Pain 0/10; ak1 08/25 22:10 Body Mass Index 22.21 (78.47 kg, 187.96 cm) fc MDM: 08/25 22:20 Patient medically screened. [facility] 22:42 Data reviewed: vital signs. [facility] 08/25 22:23 Order name: Basic Metabolic Panel; Complete Time: 00:03 bp 08/25 22:23 Order name: BNP; Complete Time: 00:03 08/25 22:23 Order name: CBC with Diff; Complete Time: 00:03 bp 08/25 22:23 Order name: Ckmb; Complete Time: 00:03 bp 08/25 22:23 Order name: CPK; Complete Time: 00:03 08/25 22:23 Order name: LFT's; Complete Time: 00:03 08/25 22:23 Order name: Magnesium; Complete Time: 00:03 bp 08/25 22:23 Order name: PT-INR; Complete Time: 00:03 08/25 22:23 Order name: Ptt, Activated; Complete Time: 00:03 08/25 22:23 Order name: Troponin (emerg Dept Use Only); Complete Time: 00:03 08/25 22:32 Order name: Lipase [facility] 08/25 22:32 Order name: TSH [facility] 08/25 22:23 Order name: XRAY Chest (1 view) 08/25 22:40 Order name: Type And Screen [facility] 08/25 22:42 Order name: CT Chest For PE Angio [facility] 08/25 22:46 Order name: Lipase; Complete Time: 00:03 EDTX 08/25 22:46 Order name: Thyroid Stimulating Hormone; Complete Time: 00:03 EDTX 08/25 22:51 Order name: Manual Differential; Complete Time: 00:03 [facility] 08/25 22:56 Order name: Blood Culture Adult (2) [facility] 08/25 23:35 Order name: Urine Dipstick--Ancillary (enter results); Complete Time: 00:03 cc 08/26 00:17 Order name: Troponin I [facility] 08/26 00:17 Order name: Troponin I [facility] 08/25 22:23 Order name: EKG; Complete Time: 22:24 bp 08/25 22:23 Order name: Cardiac monitoring; Complete Time: 22:23 bp 08/25 22:23 Order name: EKG - Nurse/Tech; Complete Time: 22:23 bp 08/25 22:23 Order name: IV Saline Lock; Complete Time: 22:23 bp 08/25 22:23 Order name: Labs collected and sent; Complete Time: 22:33 bp 08/25 22:23 Order name: O2 Per Protocol; Complete Time: 22:24 bp 08/25 22:23 Order name: O2 Sat Monitoring; Complete Time: 22:23 bp 08/25 22:23 Order name: Urine Dipstick-Ancillary (obtain specimen); Complete Time: 23:29 bp 08/26 00:17 Order name: CONS Physician Consult [facility] 08/26 00:17 Order name: CONS Physician Consult [facility] 08/26 00:17 Order name: Regular [facility] 08/26 00:17 Order name: EKG Electrocardiogram [facility] 08/26 00:17 Order name: EKG Electrocardiogram [facility] Administered Medications: 22:39 Drug: NS 0.9% 1000 ml Route: IV; Rate: 75 ml/hr; Site: right upper arm; [facility] 08/26 01:19 Follow up: IV Status: Infusion continued upon admission [facility] 08/25 22:50 Drug: Aspirin 162 mg Route: PO; ga1 23:00 Follow up: Response: No adverse reaction bp 22:50 Drug: Zofran 4 mg Route: IVP; Site: right upper arm; ga1 22:59 Follow up: Response: No adverse reaction bp 08/26 00:48 Drug: Cefepime 2 grams Route: IVPB; Rate: 200 ml/hr; Infused Over: 30 mins; Site: right ak1 upper arm; 01:16 Follow up: IV Status: Completed infusion ak1 00:48 Drug: Lovenox 1 mg/kg Route: Sub-Q; Site: left lower abdomen; ak1 01:17 Follow up: Response: No adverse reaction ak1 00:48 Drug: Lopressor 25 mg Route: PO; ak1 01:17 Follow up: Response: No adverse reaction ak1 01:20 Not Given (Patient Refused; pt denied pain): morphine 2 mg IVP once ak1 Disposition: 08/26/17 00:08 Hospitalization ordered by Gelacio Parks for Observation. Preliminary diagnosis are Other chest pain, Elevated white blood cell count, Bandemia, Anemia, unspecified. - Bed requested for Telemetry/MedSurg (observation). - Status is Observation. ak1 - Condition is Serious. - Problem is new. - Symptoms have improved. UTI on Admission? No Signatures: Dispatcher [employer] EDMS Randy Langston MD MD cha Chretien, Felicia, RN RN Lily Arroyo RN RN Sharla Ortiz, TORY RN Bassem Sotelo, RN RN bp Corrections: (The following items were deleted from the chart) 08/25 22:45 22:32 Lipase ordered. EDMS EDMS 22:45 22:32 Thyroid Stimulating Hormone ordered. EDMS EDMS
--- NOTE | 2017-08-26 00:08 | ER ---
Nurse's Notes [facility] Name: Willian De Age: 67 yrs Sex: Male : 1950 Arrival Date: 08/25/2017 Time: 22:09 Bed 2 Private MD: Diagnosis: Other chest pain;Elevated white blood cell count;Bandemia;Anemia, unspecified Presentation: 08/25 22:10 Presenting complaint: Patient states: that he has been having chest pain on and off x 4 fc days. Denies any shortness of breath but is having nausea and vomiting with it. Pt is on chemo for lung cancer and had treatment today. Also today started to have ringing swishing noise to right ear. Transition of care: patient was not received from another setting of care. Onset of symptoms was August 21, 2017. Initial Sepsis Screen: Does the patient meet any 2 criteria? HR > 90 bpm. Yes Does the patient have a suspected source of infection? No. Patient's initial sepsis screen is negative. Care prior to arrival: None. 22:10 Method Of Arrival: Ambulatory 22:10 Acuity: JARVIS 2 fc Historical: - Allergies: 22:22 No Known Allergies; fc - Home Meds: 22:22 Unable to obtain [Active]; fc - PMHx: 22:22 Anxiety; chemotherapy; CVA; Hypertension; Lung Cancer; fc - PSHx: 22:22 Arm Surg; fc - Immunization history:: Last tetanus immunization: up to date. - Social history:: Smoking status: Patient/guardian denies using tobacco, the patient reports quitting approximately .5 years ago. - Family history:: not pertinent. Screenin:10 Abuse screen: Denies threats or abuse. Nutritional screening: No deficits noted. fc Tuberculosis screening: No symptoms or risk factors identified. Fall Risk None identified. Assessment: 22:18 General: Appears in no apparent distress. comfortable, slender, Behavior is calm, bp cooperative, appropriate for age. Pain: Complains of pain in chest Pain does not radiate. Pain currently is 5 out of 10 on a pain scale. Pain began 2-3 days ago. Is intermittent. Neuro: Level of Consciousness is awake, alert, obeys commands, Oriented to person, place, time, situation, Appropriate for age. Cardiovascular: Rhythm is sinus rhythm. Respiratory: Airway is patent Respiratory effort is even, unlabored, Respiratory pattern is regular, symmetrical. GI: No signs and/or symptoms were reported involving the gastrointestinal system. : No signs and/or symptoms were reported regarding the genitourinary system. EENT: No deficits noted. Derm: No deficits noted. Musculoskeletal: Circulation, motion, and sensation intact. Range of motion: intact in all extremities. 22:50 Reassessment: Patient denies pain at this time. ak1 Vital Signs: 22:10 BP 162 / 94; Pulse 119; Resp 16; Temp 98.2(O); Pulse Ox 100% on R/A; Weight 78.47 kg fc (R); Height 6 ft. 2 in. (187.96 cm) (R); Pain 5/10; 08/26 00:40 BP 137 / 82; Pulse 97; Resp 16; Temp 98.2(O); Pulse Ox 100% on R/A; Pain 0/10; ak1 08/25 22:10 Body Mass Index 22.21 (78.47 kg, 187.96 cm) ED Course: 08/25 22:09 Patient arrived in ED. al2 22:10 Arm band placed on Patient placed in an exam room, on a stretcher. fc 22:10 Patient has correct armband on for positive identification. Placed in gown. Bed in low fc position. Call light in reach. bus monitor on. Pulse ox on. NIBP on. 22:12 Bassem Call, RN is Primary Nurse. bp 22:15 Inserted saline lock: 20 gauge in right upper arm, using aseptic technique. ,using fc aseptic technique. per Bassem RN Blood collected. 22:20 Triage completed. fc 22:20 Randy Langston MD is Attending Physician. sivan 22:21 Inserted saline lock: 20 gauge in right upper arm, using aseptic technique. Blood bp collected. 22:26 EKG done, by ED staff, reviewed by Randy Langston MD. cc 22:47 X-ray completed. Portable x-ray completed in exam room. Patient tolerated procedure bb2 well. 22:48 XRAY Chest (1 view) In Process Unspecified. EDMS 22:49 Notified ED physician of a critical lab result(s). wbc of 45.0. fc 22:55 Radiology exam delayed due to lab results not completed at this time. (BUN/Creatinine). nj 23:39 Notified ED physician of a critical lab result(s). band count 10%. 08/26 00:07 Gelacio Parks MD is Hospitalizing Provider. [facility] 00:20 CT Chest For PE Angio In Process Unspecified. EDMS 00:48 No provider procedures requiring assistance completed. Patient admitted, IV remains in ak1 place. Patient maintains SpO2 saturation greater than 95% on room air. Administered Medications: 08/25 22:39 Drug: NS 0.9% 1000 ml Route: IV; Rate: 75 ml/hr; Site: right upper arm; ak1 08/26 01:19 Follow up: IV Status: Infusion continued upon admission ak1 08/25 22:50 Drug: Aspirin 162 mg Route: PO; ak1 23:00 Follow up: Response: No adverse reaction bp 22:50 Drug: Zofran 4 mg Route: IVP; Site: right upper arm; ak1 22:59 Follow up: Response: No adverse reaction bp 08/26 00:48 Drug: Cefepime 2 grams Route: IVPB; Rate: 200 ml/hr; Infused Over: 30 mins; Site: right ak1 upper arm; 01:16 Follow up: IV Status: Completed infusion ak1 00:48 Drug: Lovenox 1 mg/kg Route: Sub-Q; Site: left lower abdomen; ak1 01:17 Follow up: Response: No adverse reaction ak1 00:48 Drug: Lopressor 25 mg Route: PO; ak1 01:17 Follow up: Response: No adverse reaction ak1 01:20 Not Given (Patient Refused; pt denied pain): morphine 2 mg IVP once ak1 Outcome: 00:08 Decision to Hospitalize by Provider. sivan 00:50 Condition: stable ak1 00:50 Instructed on the need for admit. 01:18 Admitted to Tele accompanied by tech, via wheelchair, room 220, with chart, Report ak1 called to Mahi Lion RN 01:31 Patient left the ED. ak1 Signatures: Dispatcher [employer] EDMS Randy Langston MD MD cha Chretien, Felicia RN RN Annie Green Amber, RN RN ak1 Yakov Joyce Brian, RN RN bp Bock, Brittany bb2 Maddi Ayala Corrections: (The following items were deleted from the chart) 00:47 00:40 Pulse 97bpm; Resp 16bpm; Pulse Ox 100% RA; Temp 98.2F Oral; Pain 0/10; ak1 ak1
[2017-08-26] MEDS ORDERED: ONDANSETRON 4 MG/2 ML VIAL IV PRN (00:12)
[2017-08-26] MEDS ORDERED: ACETAMINOPHEN 500 MG TAB PO PRN (00:12)
[2017-08-26] MEDS ORDERED: MORPHINE 4 MG/ML SYR IV PRN (00:12)
[2017-08-26] MEDS ORDERED: CEFOXITIN SODIUM 2 GM/VIAL ONE (00:35)
[2017-08-26] MEDS ORDERED: METOPROLOL TAR 25 MG TAB ONE (00:35)
[2017-08-26] MEDS ORDERED: ENOXAPARIN 80 MG/0.8 ML SQ ONE (00:36)
[2017-08-26] MEDS ORDERED: NA CHLORIDE 0.9% 100 ML IV ONE (00:36)
[2017-08-26 02:21] VITALS: BMI 21.4
[2017-08-26] MEDS: METOPROLOL TAR 25 MG TAB PO SCH ×2 (06:17→17:24)
[2017-08-26] MEDS ORDERED: Morphine 2 MG/2 ML SYR IV PRN (08:26)
[2017-08-26] MEDS: FAMOTIDINE 20 MG/2 ML VIAL IV SCH ×2 (08:55→22:13)
[2017-08-26] MEDS: ASPIRIN EC 81 MG TAB PO SCH (08:57)
[2017-08-26] MEDS: CEFEPIME/SWI 1gm 1 GM/10 ML SYR IV SCH ×2 (08:57→22:12)
[2017-08-26] MEDS ORDERED: ENOXAPARIN 80 MG/0.8 ML SQ SCH ×2 (09:00→21:00)
[2017-08-26] MEDS ORDERED: CEFEPIME 1 GM/VIAL IV SCH (09:00)
--- NOTE | 2017-08-26 09:00 | RAD REPORT ---
[facility] DES[facility] 10[facility]48 pm CLINICAL HISTORY: Chest pain COMPARISON: June 2017 FINDINGS: Mild atelectasis is present within the right lung. The left lung appears clear. Mediastinal and hilar lymphadenopathy has mostly resolved. The heart is normal size
--- NOTE | 2017-08-26 10:59 | RAD REPORT ---
EXAM DESCRIPTION: CT - Chest For Pe Angio - 08/26/2017 6:42 am CLINICAL HISTORY: Chest pain for 4 days. Lung cancer. COMPARISON: June 2017. FINDINGS: An acute pulmonary embolus is not seen. The right pulmonary artery is obstructed. This is unchanged from the prior exam The mediastinal and hilar lymphadenopathy has significantly diminished in size. The largest lymph nod es measure 15 mm. A pleural effusion is not seen. A pericardial effusion is not noted. A lung consolidation is not seen . A 24 mm low density lesion has developed within segment 2 of the liver. IMPRESSION: 1. Negative for an acute pulmonary embolus. 2. 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 3. Moderate to marked improvement in the mediastinal and hilar lymphadenopathy. 4. A 23 mm lesion within segment 2 of the liver probably representing a metastasis.
--- NOTE | 2017-08-26 16:28 | EKG ---
Test Date: 2017-08-25 Test Time: 22:18:18 Cell Stripper: JANAE MEASUREMENT RESULTS: Intervals: Rate: 109 DE: 162 QRSD: 72 QT: 318 QTc: 428 [place]: P: 69 DE: 162 QRS: 43 T: 59 INTERPRETIVE STATEMENTS: Sinus tachycardia Otherwise normal ECG Compared to ECG 06/09/2017 01:51:47 No significant changes Electronically Signed On 08-26-17 16:23:53 CDT by Jeronimo Snell
--- NOTE | 2017-08-26 16:46 | ECHO ---
HEIGHT: 6 ft 2 in WEIGHT: 166 lb 9 oz DATE OF STUDY: 08/26/[address]: Jeronimo Snell MD 2-DIMENSIONAL: YES M.MODE: YES DOPPLER: YES COLOR FLOW: YES TDS: PORTABLE: DEFINITY: BUBBLE STUDY: DIAGNOSIS: CHEST PAIN CARDIAC HISTORY: CATHERIZATION: NO SURGERY: NO PROSTHETIC VALVE: NO PACEMAKER: NO MEASUREMENTS (cm) DIASTOLIC (NORMALS) SYSTOLIC (NORMALS) IVSd 1.1 (0.6-1.2) LA Diam 3.2 (1.9-4.0) LVEF 61% LVIDd 4.3 (3.5-5.7) LVIDs 2.9 (2.0-3.5) %FS 32% LVPWd 1.0 (0.6-1.2) Ao Diam 3.1 (2.0-3.7) 2 DIMENSIONAL ASSESSMENT: RIGHT ATRIUM: NORMAL LEFT ATRIUM: NORMAL RIGHT VENTRICLE: NORMAL LEFT VENTRICLE: NORMAL TRICUSPID VALVE: NORMAL MITRAL VALVE: NORMAL PULMONIC VALVE: NORMAL AORTIC VALVE: NORMAL PERICARDIAL EFFUSION: NONE AORTIC ROOT: NORMAL LEFT VENTRICULAR WALL MOTION: NORMAL DOPPLER/COLOR FLOW: NORMAL COMMENTS: NORMAL 2-DIMENSIONAL ECHOCARDIOGRAM WITH DOPPLER. NO WALL MOTION ABNORMALITY. NO EFFUSION. TECHNOLOGIST: YUSRA PANDEY
[2017-08-26] MEDS ORDERED: FAMOTIDINE 20 MG/2 ML VIAL IV ONE (21:56)
[2017-08-27 05:42] LABS: Absolute Lymphocytes (CBC) 1.1 K/uL (0.7-4.9); Absolute Monocytes 0.2 K/uL (0.1-1.3); Absolute Neutrophil 37.1 K/uL (1.8-8.0); Basophils % 0.2 % (0-1.3); Hematocrit 23.6 % (39.6-49.0); MCH 31.1 pg (27.0-35.0); MCV 91.3 fL (80-100); MPV 6.6 fL (7.6-11.3); Monocytes % 0.4 % (3.3-12.3); RBC Red Blood Cell Count 2.59 M/uL (4.33-5.43)
[2017-08-27 05:55] LABS: BUN Blood Urea Nitrogen 10 mg/dL (6-20); Bicarbonate 25 mEq/L (21-31); Glucose Level 82 mg/dL (65-120); Potassium 4.1 mEq/L (3.6-5.0); Sodium Level 132 mEq/L (135-145)
--- NOTE | 2017-08-27 06:08 | HP ---
Date of Admission: 08/26/2017 Chief Complaint: Chest pain. History Of Present Illness: A 67-year-old male, who is going to chemotherapy for metastatic lung can cer, was brought to the emergency room because of precordial chest pain. His troponin and EKG did no t show any evidence of acute injury. The patient is admitted. Past Medical History: Positive for CVA, recently diagnosed lung cancer for which he is going through chemotherapy. He has history of hypertension and anxiety. Family History: Noncontributory. Personal History: The patient currently does not smoke. Review of Systems: The patient denied any syncope, dizziness. Physical Examination: General: Revealed a 67-year-old male, alert and oriented. HEENT: Negative. Neck: Supple. JVD negative. Chest: Scattered wheezes. Heart: Regular. Abdomen: Soft. Extremities: No edema. Laboratory Data: Troponin normal. CAT scan of the chest, decreased lung mass as noted. White count increased to 45,000. Assessment: 1.Chest pain, no evidence of myocardial injury. 2.Metastatic lung cancer, on chemotherapy. 3.History of old cerebrovascular accident. 4.Anxiety. Plan: The patient had normal CT chest indicating no evidence of pulmonary embolism. The patient is taken off Lovenox pending the Oncology and Cardiology consultation. The patient will be continued on observation. ESTELLE/MOR Voice ID: [id number]
[2017-08-27] MEDS: METOPROLOL TAR 25 MG TAB PO SCH (06:41)
[2017-08-27 08:12] VITALS: O2SAT 97
[2017-08-27 08:26] VITALS: BP 97/60; TEMP 97.2
[2017-08-27] MEDS: FAMOTIDINE 20 MG/2 ML VIAL IV SCH (08:42)
[2017-08-27] MEDS: CEFEPIME/SWI 1gm 1 GM/10 ML SYR IV SCH (08:44)
[2017-08-27] MEDS: ASPIRIN EC 81 MG TAB PO SCH (08:44)
--- NOTE | 2017-08-27 16:05 | CON ---
Date of Consultation: 08/26/2017 The patient admitted on 08/26/2017, by Dr. Parks. I saw him on 08/26/2017. Reason For Consultation: Chest pain. History Of Present Illness: Mr. De is 67, has lung cancer, undergoing therapy now, have a le ft forearm abscess, I and D not long ago. Has a history of hypertension, CVA, anxiety. He came in w ith sharp chest pain, worse on breathing. No nausea, vomiting, diaphoresis, PND, orthopnea, pedal ed zach, palpitations, or syncope. His troponin was negative. CPKs and MBs were negative. Chest x-ray, EKG, and CTA were still pending. When I saw him, he had a white count of 45,000, hemoglobin 9.2, an d platelet count of 455,000. Past Medical History: As stated earlier. Allergies: NONE. Home Medications: Listed by admitting physician. Review of Systems: Negative. Social History: Negative. Family History: Negative. Physical Examination: Vital signs: Stable and afebrile, sinus rhythm. HEENT: Negative. Neck: Supple. No bruit. Chest: Clear. Cardiac: Revealed no regular rhythm and rate without any murmurs, gallops, or rubs. Extremities: Revealed no clubbing, cyanosis, or edema. Diagnostic Data: As stated earlier. Note that there was a carotid in 2013, that was done showing 50 % bilateral carotid stenosis. This may need to be followed up eventually. Impression And Plan: 1.Atypical chest pain probably pleuritic. Negative CPKs, MBs, and troponin. Echocardiogram is pend ing. 2.Lung cancer on chemotherapy. 3.Recent left forearm abscess I and D. 4.History of hypertension. 5.History of anxiety. 6.History of cerebrovascular accident. We will see what the echocardiogram shows before making amy l decisions. As stated earlier, he appeared to have cerebrovascular disease that need to be followed up as an outpatient. JORDAN/MOR Voice ID: [id number] Report ID: [id number]
== END 2017-08-27 10:05 | disposition home or self-care (01) | DRG 313 ==
LOC: ER 22:07 → ERHOLD 08-26 00:09 → 2ND 08-26 01:15
PROVIDERS: ADMIT Internal Medicine; ATTEND Internal Medicine
DX: R07.2 Precordial pain (principal); C34.90 Malignant neoplasm of unspecified part of unspecified bronchus or lung; L02.414 Cutaneous abscess of left upper limb; I10 Essential (primary) hypertension; F41.9 Anxiety disorder, unspecified; Z98.890 Other specified postprocedural states; Z86.73 Personal history of transient ischemic attack (TIA), and cerebral infarction without residual deficits
CPT/HCPCS: 36415; 71045; 71275; 80048; 80076; 81003; 82550; 82553; 83690; 83735; 83880; 84443; 84484; 85025; 85610; 85730; 86850; 86900; 86901; 87040; 93005; 93306; 96361; 96365; 96372; 96375; 99285; J0692; J0694; J1650; J2405; J7030; Q9967

== ENCOUNTER 2017-10-14 15:23 | Emergency (ER) | payer OTHER ==
--- NOTE | 2017-10-14 18:03 | ER ---
Nurse's Notes [facility] Name: Willian De Age: 67 yrs Sex: Male : 1950 Arrival Date: 10/14/2017 Time: 15:26 Bed 23 Private MD: Gelacio Parks R Diagnosis: Acute embolism and thrombosis of deep veins of left upper extremity Presentation: 10/14 15:46 Presenting complaint: Patient states: "the cancer doctor sent me here because I have aa5 blood clot in my left arm". Pt reports having US today. Pt reports intermittent SOB. Pt's reports last chemotherapy was 1 week ago. Pt reports swelling to left arm x 3 days ago. Transition of care: patient was not received from another setting of care. Onset of symptoms was October 14, 2017. Risk Assessment: Do you want to hurt yourself or someone else? Patient reports no desire to harm self or others. Initial Sepsis Screen: Does the patient meet any 2 criteria? No. Patient's initial sepsis screen is negative. Does the patient have a suspected source of infection? No. Patient's initial sepsis screen is negative. Care prior to arrival: None. 15:46 Method Of Arrival: Ambulatory aa5 15:46 Acuity: JARVIS 2 aa5 Historical: - Allergies: 15:49 No Known Allergies; aa5 - PMHx: 15:49 Anxiety; chemotherapy; CVA; Hypertension; Lung Cancer; aa5 - PSHx: 15:50 L arm surgery to remove blood clot; aa5 - Immunization history:: Pneumococcal vaccine is up to date. - Social history:: Smoking status: Patient/guardian denies using tobacco. - Ebola Screening: : No symptoms or risks identified at this time. Screenin:06 Abuse screen: Denies threats or abuse. Denies injuries from another. Nutritional aj1 screening: No deficits noted. Tuberculosis screening: No symptoms or risk factors identified. 19:34 Fall Risk None identified. aj1 Assessment: 17:06 Reassessment: Placed red "NO IV/BP/blood draw" sleeve on patient's left arm. General: aj1 Appears in no apparent distress. comfortable, Behavior is calm, cooperative, appropriate for age. Pain: Complains of pain in left arm Pain does not radiate. Pain currently is 4 out of 10 on a pain scale. at worst was 8 out of 10 on a pain scale. Quality of pain is described as burning, Aggravated by touch. Neuro: Level of Consciousness is awake, alert, obeys commands, Oriented to person, place, time, situation, Speech is normal, Facial symmetry appears normal. Cardiovascular: Heart tones S1 S2 present Patient's skin is warm and dry. Respiratory: Reports intermittent shortness of breath Airway is patent Respiratory effort is even, unlabored, Respiratory pattern is regular, symmetrical, Breath sounds are clear bilaterally. GI: No signs and/or symptoms were reported involving the gastrointestinal system. : No signs and/or symptoms were reported regarding the genitourinary system. EENT: No signs and/or symptoms were reported regarding the EENT system. Derm: redness and swelling noted to left arm. Musculoskeletal: Range of motion: intact in all extremities. 18:06 Reassessment: Patient appears in no apparent distress at this time. No changes from aj1 previously documented assessment. Patient and/or family updated on plan of care and expected duration. Pain level reassessed. Patient is alert, oriented x 3, equal unlabored respirations, skin warm/dry/pink. 19:32 Reassessment: Patient appears in no apparent distress at this time. No changes from aj1 previously documented assessment. Patient and/or family updated on plan of care and expected duration. Pain level reassessed. Patient is alert, oriented x 3, equal unlabored respirations, skin warm/dry/pink. Vital Signs: 15:50 BP 155 / 98; Pulse 88; Resp 16 S; Temp 98.0(TE); Pulse Ox 100% on R/A; Weight 81.65 kg aa5 (R); Height 6 ft. 1 in. (185.42 cm) (R); Pain 8/10; 17:06 BP 123 / 84; Pulse 85; Resp 18; Pulse Ox 100% on R/A; aj1 18:07 BP 141 / 82; Pulse 88; Resp 18; Pulse Ox 100% on R/A; aj1 19:33 BP 145 / 83; Pulse 86; Resp 18; Pulse Ox 100% on R/A; aj1 15:50 Body Mass Index 23.75 (81.65 kg, 185.42 cm) aa5 ED Course: 15:26 Patient arrived in ED. sb2 15:27 Gelacio Parks MD is Private Physician. sb2 15:45 Arm band placed on. aa5 15:49 Triage completed. aa5 16:26 Jamar Sanon, BRADLEY is PHCP. pm1 16:26 Deshawn Avery MD is Attending Physician. pm1 16:55 Malou Carpenter, RN is Primary Nurse. aj1 17:06 Patient has correct armband on for positive identification. Bed in low position. Call aj1 light in reach. Side rails up X 1. site monitor on. Pulse ox on. NIBP on. 17:06 No provider procedures requiring assistance completed. aj1 19:34 Patient did not have IV access during this emergency room visit. aj1 Administered Medications: 19:15 Drug: Lovenox 1 mg/kg Route: Sub-Q; Site: right lower abdomen; aj1 Outcome: 18:02 Discharge ordered by . pm1 19:34 Discharged to home ambulatory. aj1 19:34 Condition: stable 19:34 Discharge instructions given to patient, family, Instructed on discharge instructions, follow up and referral plans. medication usage, Demonstrated understanding of instructions, follow-up care, medications, Prescriptions given X 1. 19:34 Patient left the ED. aj1 Signatures: Malou Carpenter, RN RN aj1 Sandi Chavze RN RN aa5 Jamar Sanon NP ASSISTIVE TECHNOLOGY SPECIALIST pm1 Karla Wood sb2
--- NOTE | 2017-10-14 18:03 | EDPHYS ---
Physician Documentation [facility] Name: Willian De Age: 67 yrs Sex: Male : 1950 Arrival Date: 10/14/2017 Time: 15:26 Bed 23 Private MD: Gelacio Parks R ED Physician Deshawn Avery HPI: 10/14 18:30 This 67 yrs old Male presents to ER via Ambulatory with complaints of Blood pm1 Clot In Left Arm. 18:30 Onset: The symptoms/episode began/occurred 3 day(s) ago. Associated signs and symptoms: pm1 Pertinent negatives: chest pain, cough, fever, shortness of breath. Modifying factors: The patient symptoms are alleviated by nothing, the patient symptoms are aggravated by. The patient has not experienced similar symptoms in the past. The patient has been recently seen by a physician: Dr. Fischer. Patient with left arm ultrasound today and was sent to the emergency department for evaluation and treatment. Historical: - Allergies: 15:49 No Known Allergies; aa5 - PMHx: 15:49 Anxiety; chemotherapy; CVA; Hypertension; Lung Cancer; aa5 - PSHx: 15:50 L arm surgery to remove blood clot; aa5 - Immunization history:: Pneumococcal vaccine is up to date. - Social history:: Smoking status: Patient/guardian denies using tobacco. - Ebola Screening: : No symptoms or risks identified at this time. ROS: 18:30 Constitutional: Negative for fever, chills, and weight loss, Eyes: Negative for injury, pm1 pain, redness, and discharge, ENT: Negative for injury, pain, and discharge, Neck: Negative for injury, pain, and swelling, Cardiovascular: Negative for chest pain, palpitations, and edema, Respiratory: Negative for shortness of breath, cough, wheezing, and pleuritic chest pain, Abdomen/GI: Negative for abdominal pain, nausea, vomiting, diarrhea, and constipation, Back: Negative for injury and pain. 18:30 Skin: Negative for injury, rash, and discoloration, Neuro: Negative for headache, weakness, numbness, tingling, and seizure. 18:30 MS/extremity: Positive for swelling, of the dorsal aspect of left forearm, Negative for decreased range of motion, deformity. Exam: 18:30 Constitutional: This is a well developed, well nourished patient who is awake, alert, pm1 and in no acute distress. Head/Face: Normocephalic, atraumatic. Eyes: Pupils equal round and reactive to light, extra-ocular motions intact. Lids and lashes normal. Conjunctiva and sclera are non-icteric and not injected. Cornea within normal limits. Periorbital areas with no swelling, redness, or edema. ENT: Nares patent. No nasal discharge, no septal abnormalities noted. Tympanic membranes are normal and external auditory canals are clear. Oropharynx with no redness, swelling, or masses, exudates, or evidence of obstruction, uvula midline. Mucous membranes moist. Neck: Trachea midline, no thyromegaly or masses palpated, and no cervical lymphadenopathy. Supple, full range of motion without nuchal rigidity, or vertebral point tenderness. No Meningismus. Chest/axilla: Normal chest wall appearance and motion. Nontender with no deformity. No lesions are appreciated. Cardiovascular: Regular rate and rhythm with a normal S1 and S2. No gallops, murmurs, or rubs. Normal PMI, no JVD. No pulse deficits. Respiratory: Lungs have equal breath sounds bilaterally, clear to auscultation and percussion. No rales, rhonchi or wheezes noted. No increased work of breathing, no retractions or nasal flaring. Abdomen/GI: Soft, non-tender, with normal bowel sounds. No distension or tympany. No guarding or rebound. No evidence of tenderness throughout. Back: No spinal tenderness. No costovertebral tenderness. Full range of motion. 18:30 Musculoskeletal/extremity: Extremities: grossly normal except: noted in the dorsal aspect of left forearm: swelling, tenderness. Vital Signs: 15:50 BP 155 / 98; Pulse 88; Resp 16 S; Temp 98.0(TE); Pulse Ox 100% on R/A; Weight 81.65 kg aa5 (R); Height 6 ft. 1 in. (185.42 cm) (R); Pain 8/10; 17:06 BP 123 / 84; Pulse 85; Resp 18; Pulse Ox 100% on R/A; aj1 18:07 BP 141 / 82; Pulse 88; Resp 18; Pulse Ox 100% on R/A; aj1 19:33 BP 145 / 83; Pulse 86; Resp 18; Pulse Ox 100% on R/A; aj1 15:50 Body Mass Index 23.75 (81.65 kg, 185.42 cm) aa5 MDM: 16:40 Patient medically screened. pm1 18:01 Data reviewed: vital signs. Data interpreted: Pulse oximetry: on room air is 100 %. pm1 Interpretation: normal. Counseling: I had a detailed discussion with the patient and/or guardian regarding: the historical points, exam findings, and any diagnostic results supporting the discharge/admit diagnosis, the need for outpatient follow up, to return to the emergency department if symptoms worsen or persist or if there are any questions or concerns that arise at home. 18:30 ED course: Consulted with Dr. Avery and Dr. King regarding patient presentation and pm1 diagnosis of DVT to left arm. Patient's Pulmonary Embolism Wells Score = 1. Dr. King reported no further work up necessary. Prescribe the patient Eliquis 10 mg PO BID for 7 days and then Eliquis 5 mg PO BID. Ensure that the patient will be able to ge the prescription. Patient given spread cutter coupon information and mobli information if any issues with finance . Administered Medications: 19:15 Drug: Lovenox 1 mg/kg Route: Sub-Q; Site: right lower abdomen; aj1 Disposition: 10/14/17 18:02 Discharged to Home. Impression: Acute embolism and thrombosis of deep veins of left upper extremity. - Condition is Stable. - Discharge Instructions: Deep Vein Thrombosis. - Prescriptions for Eliquis 5 mg Oral tablet - take 2 tablet by ORAL route 2 times per day for 7 days Take Eliquis 10 mg PO BID for 7 days then Eliquis 5 mg PO BID; 60 tablet. - Medication Reconciliation Form, Thank You Letter form. - Follow up: Private Physician; When: 2 - 3 days; Reason: Recheck today's complaints, Continuance of care, Re-evaluation by your physician. - Problem is new. - Symptoms have improved. Addendum: 10/18/2017 07:06 Co-signature as Attending Physician, Deshawn Avery MD I agree with the assessment and k dr plan of care. Signatures: Malou Carpenter RN RN aj1 Deshawn Avery MD MD [facility] Sandi Chavez RN RN aa5 Jamar Sanon, BRADLEY BELTING AND WEBBING INSPECTOR pm1 Corrections: (The following items were deleted from the chart) 10/14 19:34 18:02 10/14/2017 18:02 Discharged to Home. Impression: Acute embolism and thrombosis of aj1 deep veins of left upper extremity. Condition is Stable. Forms are Medication Reconciliation Form, Thank You Letter, Antibiotic Education, Prescription Opioid Use. Follow up: Private Physician; When: 2 - 3 days; Reason: Recheck today's complaints, Continuance of care, Re-evaluation by your physician. Problem is new. Symptoms have improved. pm1
[2017-10-14] MEDS ORDERED: ENOXAPARIN 80 MG/0.8 ML SQ ONE (19:03)
[2017-10-14 20:31] VITALS: TEMP 98; O2SAT 100
[2017-10-14 20:35] VITALS: BP 145/83
== END 2017-10-14 19:34 | disposition home or self-care (01) ==
LOC: ER 15:23
DX: I82.622 Acute embolism and thrombosis of deep veins of left upper extremity (principal); F41.9 Anxiety disorder, unspecified; Z86.73 Personal history of transient ischemic attack (TIA), and cerebral infarction without residual deficits; Z85.118 Personal history of other malignant neoplasm of bronchus and lung; I10 Essential (primary) hypertension
CPT/HCPCS: 93971; 96372; 99284; J1650

== ENCOUNTER 2017-11-15 06:40 | Day surgery (SDC) | payer OTHER ==
[2017-11-15 07:14] VITALS: BMI 24.3
[2017-11-15 07:49] VITALS: O2SAT 100
[2017-11-15] MEDS ORDERED: NA CHLORIDE 0.9% 250 ML ONE ×2 (08:40→11:21)
[2017-11-15 12:50] VITALS: BP 143/75; TEMP 98
[2017-11-15 16:07] LABS: Hematocrit 28.5 % (39.6-49.0)
== END 2017-11-15 16:00 | disposition home or self-care (01) ==
LOC: DS 06:40
PROVIDERS: ATTEND Internal Medicine Medical Oncology
PROC: 30283B1 Transfusion of Nonautologous 4-Factor Prothrombin Complex Concentrate into Vein, Percutaneous Approach (ICD-10-PCS; principal; 2017-11-15)
DX: D64.81 Anemia due to antineoplastic chemotherapy (principal); C34.31 Malignant neoplasm of lower lobe, right bronchus or lung
CPT/HCPCS: 36415; 36430; 85014; 85018; 86850; 86900; 86901; P9016 ×2

== ENCOUNTER 2017-12-07 07:21 | Day surgery (SDC) | payer OTHER ==
[2017-12-06 14:37] LABS: Absolute Lymphocytes (CBC) 1.4 K/uL (0.7-4.9); Absolute Monocytes 0.8 K/uL (0.1-1.3); Absolute Neutrophil 6.3 K/uL (1.8-8.0); Basophils % 0.5 % (0-1.3); Eosinophils % 2.8 % (0-4.4); Hematocrit 32.6 % (39.6-49.0); Lymphocytes % 15.8 % (15.3-44.8); MCH 34.9 pg (27.0-35.0); MPV 7.8 fL (7.6-11.3); Monocytes % 8.7 % (3.3-12.3); RBC Red Blood Cell Count 3.26 M/uL (4.33-5.43)
[2017-12-06 14:56] LABS: BUN Blood Urea Nitrogen 8 mg/dL (7-18); Bicarbonate 27 mmol/L (21-32); Glucose Level 96 mg/dL (74-106); Potassium 3.7 mmol/L (3.5-5.1); Sodium Level 132 mmol/L (136-145)
--- NOTE | 2017-12-06 17:59 | RAD REPORT ---
EXAM DESCRIPTION: Susanna Huddleston (2 Views)12/06/2017 3:13 pm CLINICAL HISTORY: Lung cancer/preop for abscess surgery COMPARISON: August 2017 FINDINGS: The lungs appear clear of acute infiltrate. The heart is normal size IMPRESSION: No acute abnormalities displayed
--- NOTE | 2017-12-06 18:21 | EKG ---
Test Date: 2017-12-06 Test Time: 14:19:58 Ambulance Driver: HERMANN MEASUREMENT RESULTS: Intervals: Rate: 92 IN: 188 QRSD: 80 QT: 342 QTc: 422 [place]: P: 35 IN: 188 QRS: 4 T: 53 INTERPRETIVE STATEMENTS: Normal sinus rhythm Normal ECG Compared to ECG 08/25/2017 22:18:18 Sinus tachycardia no longer present Electronically Signed On 12-06-17 18:20:33 CDT by Glenn Olson
--- OUTSIDE RECORDS SUMMARY | 2017-12-07 07:24 | XMS REPORT | Continuity of Care Document ---
:1950 Author Organization Interface Problems Problem Status Onset Classification Date Comments Source Date Reported LIVER MASS Active [facility] 8 [place] Medications Medication Details Route Status Patient Ordering Order Source Instructions Provider Date Ibuprofen 200 400 mg=2 Active 11/22/19 [facility] MG Oral Tablet tab, PO, 18 [place] Q4H, PRN Pain, # 120 tab, 0 Refill(s) ondansetron 4 4 mg=1 Active 11/22/19 [facility] mg oral tablet tab, PO, 18 [place] Q8H, PRN Nausea, 0 Refill(s) cephalexin 500 500 mg=1 Active 11/22/19 [facility] mg oral cap, PO, 18 [place] capsule Q12H, 0 Refill(s) Alprazolam 0.5 0.5 mg=1 Active 11/22/19 [facility] MG Oral Tablet tab, PO, 18 [place] BID, PRN Anxiety, # 60 tab, 0 Refill(s) apixaban 5 MG 5 mg, PO, Active 11/22/19 [facility] Oral Tablet Q12H, 0 18 [place] [Eliquis] Refill(s) Allergies, Adverse Reactions, Alerts Substance Category Reaction Severity Reaction Status Date Comments Source type Reported NKDA Assertion Drug Active [facility] allergy [place] Immunizations Immunization Date Given Site Status Last Updated Comments Source Results Order Name Results Value Reference Date Interpretation Comments Source Range HEMATOLOGY PTT 33.2 s 22.9 - 11/21 [facility] 35.8 /2017 [place] HEMATOLOGY PT 13.6 s 12.0 - 11/21 [facility] 14.7 /2017 [place] HEMATOLOGY INR 1.04 0.85 - 11/21 [facility] 1.17 [place] Biopsy Biopsy Patient Name: KIARA COYLE 11/21 - [facility] liver VR liver - [place] : 1950; Age: 67 years Male MR: [id number] Read by: Milagros Rosas MD Dictated Date/time: 11/21/17 10:52 Electronically Signed by: Milagros Rosas MD 11/21/17 10:55 FINAL REPORT PROCEDURE: 1. CT-guided biopsy of a right liver mass 2. Conscious sedation CLINICAL INFORMATION: Multiple liver masses, history of lung cancer CONSENT: The procedure, risks, benefits and alternatives were discussed with the patient and written informed consent was obtained. A "time out" was performed per protocol prior to the procedure. TECHNIQUE: CT imaging performed at this location utilizes radiation dose optimization techniques which include one or more of the following: -Automated exposure control -Adjustment of the mA and/or kV according to patient size -Use of iterative reconstruction technique -Radiation dose: 995.95 mGy-cm computer terminal operator: Dr. Rosas Preoperative diagnosis: Multiple liver masses Postoperative diagnosis: Same Estimated blood loss: Minimal Moderate sedation: I supervised moderate sedation during this procedure. The patient was continuously monitored by a nurse using automated blood pressure , electrocardiogram, and pulse oximetry. [facility] sed[facility] is permanently stored in the hospital information system. The personal supervised moderate sedation time was 26 minutes. Medications administered: Versed 2 mg IV and Fentanyl 100 mcg IV. The patient was placed in a supine position on the CT table. Preprocedure CT demonstrated multiple hypodense liver masses. The right abdominal wall was prepped and draped with sterile technique and the skin was anesthetized with 1% lidocaine. Under CT guidance, a 17-gauge introducer needle was advanced into a 2.8 cm right liver mass. Subsequently, 5 core biopsies (18-gauge, 2 cm) were obtained of this lesion using a coaxial technique. The needles were removed and sterile dressing applied. Postprocedure imaging demonstrated no immediate complication. Patient tolerated the procedure well and transferred to the recovery room in stable condition. IMPRESSION: Successful CT-guided biopsy of a right liver mass. SL: [id number] Vital Signs Vital Sign Value Date Comments Source BMI Calculated 25.65 11/21/2017 [facility] Weight 88.182 11/21/2017 [facility] Height 185.42 cm 11/21/2017 [facility] Encounters Location Location Encounter Encounter Reason Attending ADM DC Status Source Details Type Number For Provider Date Date Visit [facility] [id number] Alicia 11/21 11/22 MIKAYLA Pena /2017 [facility] Procedures Procedure Code Date Perfomer Comments Source
[2017-12-07] MEDS: Ringers Lactate 1,000 ML IV ONE ×2 (08:10→09:54)
[2017-12-07] MEDS ORDERED: PROPOFOL 200 MG/20 ML VIAL IV ONE (08:56)
[2017-12-07] MEDS ORDERED: FENTANYL CITR 100 MCG/2 ML ONE (08:56)
[2017-12-07] MEDS ORDERED: MIDAZOLAM HCL 2 MG/2 ML INJ ONE (08:56)
[2017-12-07] MEDS ORDERED: LIDOCAINE 2% MPF 5 ML VIAL ONE (08:56)
[2017-12-07] MEDS: CEFAZOLIN/SWI 1gm 1 GM/10 ML SYR ONE ×2 (09:04→09:56)
--- NOTE | 2017-12-07 10:30 | P.BOP ---
Preoperative diagnosis: perianal bulging, perianal pain Postoperative diagnosis: Perianal abscess Primary procedure: 1. Incision and drainage of perianal abscess, 2. Anoscopy, 3. EUA Secondary procedure: 4. Incisional bx perianal abscess, 5. rigid proctostopy Estimated blood loss: <10cc Specimen: bx Findings: multiloculated complex abscess Anesthesia: General Complications: None Drain(s): Other Transferred to: Recovery Room Condition: Good
[2017-12-07] MEDS ORDERED: CODEINE 30MG/APAP 300MG TAB PO ONE (11:50)
[2017-12-07] MEDS ORDERED: CODEINE 30MG/APAP 300MG TAB ONE (11:54)
[2017-12-07 13:08] VITALS: TEMP 97; O2SAT 100
[2017-12-07 13:09] VITALS: BP 128/62
--- NOTE | 2017-12-07 16:55 | OP ---
Surgeon: Bhupinder Patel MD Diagnosis: Colon cancer, perianal abscess. Procedure: EUA anoscopy, proctoscopy, I and D of the perianal abscess with perianal abscess biopsy. Disposition: Home. Discharge Instructions: Wet-to-dry dressing. Normal saline daily. The patient has been on and off taking p.o. antibiotics. He is going to finish them. Medications: Medication will include also Tylenol No. 3 and normal saline. JOSTIN/MOR Voice ID: [id number] Report ID: [id number]
--- NOTE | 2017-12-07 17:01 | OP ---
Date of Procedure: 12/07/2017 Surgeon: Bhupinder Patel MD Preoperative Diagnoses: Perianal bulging. Perianal pain. Postoperative Diagnoses: Perianal abscess. Procedures: Incision and drainage of perianal abscess, anoscopy, examination under anesthesia, incis ional biopsy of perianal abscess, rigid proctoscopy. Anesthesia: General plus local. Specimen: Biopsy of the abscess and culture. Indications: This is the case of a 67-year-old patient with a history of lung cancer, currently on c hemotherapy, came with this lesion on the perianal region, secreting purulent discharge. He was unab le to say if it is an abscess of a fistula or a malignancy. Due to location and difficult to evaluat e the patient, the oncologist was asked to take a look at the patient and examine him, so we offered examination under anesthesia, anoscopy, proctoscopy, possible abscess drainage, possible mass removal , possible fistulectomy, and possible hemorrhoidectomy with benefits, alternatives, and risks includi ng, but not limited to infection, bleeding, damage to adjacent structures, anesthesia complication, a nal stricture and incontinence, MT, and even . He also understood this may not relieve any symp toms. He might need more than one surgical intervention. He understood and signed the consent. Description Of Procedure: The patient was brought to the operating room and placed in supine positio n. Anesthesia was done without complication. The patient was placed in lithotomy position with prop er protection. Perianal and buttock area were prepped and draped in a sterile fashion. Rectal exami nation was done and we noticed internal and external hemorrhoids. No masses palpated. We have this lesion that is right at the perianal region. We probed the incision and instead of going to the rect um, goes into the anterior and lateral side of the buttocks from the perianal region. So, at that mo ment, we noticed we were dealing with a perianal abscess induration there, so we decided also to do t he biopsy of that area. Biopsy was done. Abscess was opened. Had multiple loculations, complex abs cess, but we were able to explore the area and then obtain hemostasis and pack the area with wet-to-d ry dressing. The patient tolerated the procedure well. Cultures were sent. The patient sent to [facility] in stable condition. JOSTIN/MOR Voice ID: [id number] Report ID: [id number]
== END 2017-12-07 12:25 | disposition home health service (06) ==
LOC: OR 07:21
PROVIDERS: ATTEND Surgery
PROC: 0HBAXZX Excision of Inguinal Skin, External Approach, Diagnostic (ICD-10-PCS; 2017-12-07)
PROC: 0D9QXZX Drainage of Anus, External Approach, Diagnostic (ICD-10-PCS; principal; 2017-12-07 09:30)
DX: K61.0 Anal abscess (principal); K62.89 Other specified diseases of anus and rectum; I10 Essential (primary) hypertension
CPT/HCPCS: 36415; 46050; 46999; 71046; 80048; 85025; 87070; 87205; 88304; 93005; J0690; J2250; J3010; 87077; 87186; 88305

== ENCOUNTER 2018-01-05 14:06 | Inpatient (IN) | payer OTHER ==
--- OUTSIDE RECORDS SUMMARY | 2018-01-05 14:08 | XMS REPORT | Continuity of Care Document ---
:1950 Author Organization Interface Problems Problem Status Onset Classification Date Comments Source Date Reported LIVER MASS Active [facility] 8 [place] Medications Medication Details Route Status Patient Ordering Order Source Instructions Provider Date Ibuprofen 200 400 mg=2 Active 11/22/19 [facility] MG Oral Tablet tab, PO, 18 [place] Q4H, PRN Pain, # 120 tab, 0 Refill(s) ondansetron 4 4 mg=1 Active 11/22/19 [facility] mg oral tablet tab, PO, 18 [place] Q8H, PRN Nausea, 0 Refill(s) cephalexin 500 500 mg=1 Active 11/22/19 [facility] mg oral cap, PO, 18 [place] capsule Q12H, 0 Refill(s) Alprazolam 0.5 0.5 mg=1 Active 11/22/19 [facility] MG Oral Tablet tab, PO, 18 [place] BID, PRN Anxiety, # 60 tab, 0 Refill(s) apixaban 5 MG 5 mg, PO, Active 11/22/19 [facility] Oral Tablet Q12H, 0 18 [place] [Eliquis] Refill(s) Allergies, Adverse Reactions, Alerts Substance Category Reaction Severity Reaction Status Date Comments Source type Reported NKDA Assertion Drug Active [facility] allergy [place] Immunizations Immunization Date Given Site Status Last Updated Comments Source Results Order Name Results Value Reference Date Interpretation Comments Source Range HEMATOLOGY PTT 33.2 s 22.9 - 11/21 [facility] 35.8 /2017 [place] HEMATOLOGY PT 13.6 s 12.0 - 11/21 [facility] 14.7 /2017 [place] HEMATOLOGY INR 1.04 0.85 - 11/21 [facility] 1.17 [place] Biopsy Biopsy Patient Name: KIARA COYLE 11/21 - [facility] liver VR liver - [place] : 1950; Age: 67 years Male MR: [id number] Read by: Milagros Rosas MD Dictated Date/time: [...] iterative reconstruction technique -Radiation dose: 995.95 mGy-cm labeling machine operator: Dr. Rosas Preoperative diagnosis: Multiple liver masses Postoperative diagnosis: Same Estimated blood loss: Minimal Moderate sedation: I supervised moderate sedation during this procedure. The patient was continuously monitored by a nurse using automated blood pressure , electrocardiogram, and pulse oximetry. [place] [facility] [place] [place] permanently stored in [...] biopsy of a right liver mass. SL: [id number] Vital Signs Vital Sign Value Date Comments Source BMI Calculated 25.65 11/21/2017 [facility] Weight 88.182 11/21/2017 [facility] Height 185.42 cm 11/21/2017 [facility] Encounters Location Location Encounter Encounter Reason Attending ADM DC Status Source Details Type Number For Provider Date Date [facility] [id number] Alicia 11/21 11/22 MIKAYLA Pena /2017 [facility] Procedures Procedure Code Date Perfomer Comments Source
[2018-01-05 15:13] LABS: Absolute Lymphocytes (CBC) 0.6 K/uL (0.7-4.9); Absolute Monocytes 0.7 K/uL (0.1-1.3); Basophils % 0.3 % (0-1.3); Eosinophils % 2.6 % (0-4.4); Hematocrit 36.3 % (39.6-49.0); Lymphocytes % 8.3 % (15.3-44.8); MCH 34.9 pg (27.0-35.0); MCV 97.2 fL (80-100); MPV 7.7 fL (7.6-11.3); Monocytes % 8.8 % (3.3-12.3); RBC Red Blood Cell Count 3.74 M/uL (4.33-5.43)
[2018-01-05] MEDS ORDERED: CODEINE 30MG/APAP 300MG TAB ONE (15:24)
[2018-01-05 15:30] LABS: BUN Blood Urea Nitrogen 6 mg/dL (7-18); Bicarbonate 27 mmol/L (21-32); Glucose Level 98 mg/dL (74-106); Potassium 4.1 mmol/L (3.5-5.1); Sodium Level 122 mmol/L (136-145)
[2018-01-05] MEDS ORDERED: NA CHLORIDE 0.9% 1,000 ML ONE (15:47)
[2018-01-05 17:03] LABS: Urine Bacteria LOADED /HPF (NONE SEEN); Urine Culture Reflex Order NOT NEEDED; Urine RBC <5 /HPF (NONE SEEN); Urine White Blood Cell Casts 0-5 /LPF (NONE SEEN)
[2018-01-05] MEDS ORDERED: ONDANSETRON 4 MG/2 ML VIAL IV PRN (17:34)
[2018-01-05] MEDS ORDERED: ACETAMINOPHEN 500 MG TAB PO PRN (17:34)
[2018-01-05] MEDS ORDERED: MORPHINE 2 MG/ML SYR IV PRN (17:34)
--- NOTE | 2018-01-05 17:34 | ER ---
Nurse's Notes [facility] Name: Willian De Age: 67 yrs Sex: Male : 1950 Arrival Date: 01/05/2018 Time: 14:11 Bed 23 Private MD: Gelacio Parks R Diagnosis: Hypo-osmolality and hyponatremia;Pain in left leg;Pain in right leg;Abdominal and pelvic pain Presentation: 01/05 14:12 Presenting complaint: Patient states: Epigastric pain and bilateral leg weakness for 2 aj days. Transition of care: patient was not received from another setting of care. Onset of symptoms was January 03, 2018. Risk Assessment: Do you want to hurt yourself or someone else? Patient reports no desire to harm self or others. Initial Sepsis Screen: Does the patient meet any 2 criteria? No. Patient's initial sepsis screen is negative. Does the patient have a suspected source of infection? No. Patient's initial sepsis screen is negative. Care prior to arrival: None. 14:12 Method Of Arrival: Wheelchair aj 14:12 Acuity: JARVIS 2 aj Triage Assessment: 14:14 General: Appears in no apparent distress. comfortable, Behavior is calm, cooperative, aj appropriate for age. Pain: Complains of pain in epigastric area. Neuro: Level of Consciousness is awake, alert, obeys commands, Oriented to person, place, time, situation, Appropriate for age. Respiratory: Airway is patent Respiratory effort is even, unlabored, Respiratory pattern is regular, symmetrical. GI: Abdomen is flat, non-distended, Reports epigastric pain. Derm: Skin is intact, is healthy with good turgor, Skin is pink, warm \T\ dry. normal. Musculoskeletal: Reports weakness in right leg and left leg. Historical: - Allergies: 14:14 No Known Allergies; aj - Home Meds: 14:14 azithromycin 250 mg Oral tab 1 tab once daily [Active]; Guaifenesin DM Oral every 8 aj hours [Active]; pantoprazole 40 mg Oral TbEC 1 tab once daily [Active]; - PMHx: 14:14 Anxiety; chemotherapy; CVA; Hypertension; Lung Cancer; aj - PSHx: 14:14 L arm surgery to remove blood clot; aj - Immunization history:: Adult Immunizations up to date. - Social history:: Smoking status: Patient/guardian denies using tobacco. - Ebola Screening: : Patient negative for fever greater than or equal to 101.5 degrees Fahrenheit, and additional compatible Ebola Virus Disease symptoms Patient denies exposure to infectious person Patient denies travel to an Ebola-affected area in the 21 days before illness onset No symptoms or risks identified at this time. Screenin:31 Abuse screen: Denies threats or abuse. Denies injuries from another. Nutritional ch screening: No deficits noted. Tuberculosis screening: No symptoms or risk factors identified. Fall Risk None identified. Assessment: 14:31 General: Appears in no apparent distress. comfortable, Behavior is calm, cooperative, ch appropriate for age. Pain: Complains of pain in epigastric area and abdomen diffusely and left leg and right leg Pain currently is 6 out of 10 on a pain scale. Pain began gradually. Neuro: Level of Consciousness is awake, alert, obeys commands, Oriented to person, place, time, situation, Gathering Machine Setter are equal bilaterally Moves all extremities. Full function Gait is steady, Speech is normal, Facial symmetry appears normal, Facial symmetry: tongue is midline. Cardiovascular: Heart tones S1 S2 present Capillary refill < 3 seconds Clubbing of nail beds is present Patient's skin is warm and dry. Pulses are all present. Edema is absent. Respiratory: Airway is patent Respiratory effort is even, unlabored. GI: Abdomen is flat, non-distended, Bowel sounds present X 4 quads. Abd is soft and non tender X 4 quads. Reports lower abdominal pain, upper abdominal pain, nausea. : No signs and/or symptoms were reported regarding the genitourinary system. Derm: Skin is pink, warm \T\ dry. Musculoskeletal: Capillary refill < 3 seconds, in bilateral fingers. toes. Swelling absent Reports pain in right leg and left leg. 15:12 Reassessment: Patient appears in no apparent distress at this time. Patient and/or ch family updated on plan of care and expected duration. Pain level reassessed. Patient is alert, oriented x 3, equal unlabored respirations, skin warm/dry/pink. 16:00 Reassessment: Patient appears in no apparent distress at this time. Patient and/or ch family updated on plan of care and expected duration. Pain level reassessed. Patient is alert, oriented x 3, equal unlabored respirations, skin warm/dry/pink. Patient states feeling better. Patient states symptoms have improved. 16:17 Reassessment: Patient appears in no apparent distress at this time. No changes from tl3 previously documented assessment. Patient and/or family updated on plan of care and expected duration. Pain level reassessed. Patient is alert, oriented x 3, equal unlabored respirations, skin warm/dry/pink. 17:04 Reassessment: Patient appears in no apparent distress at this time. Patient and/or ch family updated on plan of care and expected duration. Pain level reassessed. Patient is alert, oriented x 3, equal unlabored respirations, skin warm/dry/pink. erp notified of pt status and pt states he feels better and is ready to go home Patient denies pain at this time. Patient states feeling better. Patient states symptoms have improved. 18:03 Reassessment: Patient appears in no apparent distress at this time. Patient and/or ch family updated on plan of care and expected duration. Pain level reassessed. Patient is alert, oriented x 3, equal unlabored respirations, skin warm/dry/pink. awaiting room assignment, awaiting provider to place orders in the computer. no s/s of distress, pt states he feels better. 18:26 Reassessment: Patient appears in no apparent distress at this time. Patient and/or ch family updated on plan of care and expected duration. Pain level reassessed. Patient is alert, oriented x 3, equal unlabored respirations, skin warm/dry/pink. orders are in the computer from Dr. Avery, awaiting room assignment. 19:17 Reassessment: Patient and/or family updated on plan of care and expected duration. Pain tl3 level reassessed. Patient is alert, oriented x 3, equal unlabored respirations, skin warm/dry/pink. awaiting bed assignment, pt has no needs at this time. Vital Signs: 14:14 BP 154 / 88; Pulse 98; Resp 16; Temp 98.0; Pulse Ox 100% on R/A; Weight 84.37 kg; aj Height 6 ft. 0 in. (182.88 cm); 14:31 BP 148 / 81; Pulse 88; Resp 22; Temp 97.8; Pulse Ox 96% on R/A; Pain 6/10; ch 16:00 BP 142 / 94; Pulse 86; Resp 15; Temp 98.1; Pulse Ox 99% on R/A; Pain 0/10; ch 17:04 BP 145 / 80; Pulse 79; Resp 20; Temp 98.5; Pulse Ox 99% on R/A; Pain 2/10; ch 18:03 BP 131 / 88; Pulse 82; Resp 14; Pulse Ox 99% on R/A; Pain 0/10; ch 19:17 BP 136 / 85; Pulse 81; Resp 16; Pulse Ox 100% on R/A; tl3 14:14 Body Mass Index 25.23 (84.37 kg, 182.88 cm) aj ED Course: 14:11 Patient arrived in ED. mr 14:11 Gelacio Parks MD is Private Physician. mr 14:13 Triage completed. aj 14:14 Arm band placed on left wrist. Patient placed in waiting room. aj 14:21 Deshawn Avery MD is Attending Physician. kdr 14:31 Mallory Aleman, RN is Primary Nurse. ch 15:12 Patient has correct armband on for positive identification. Placed in gown. Bed in low ch position. Call light in reach. Side rails up X 1. Adult w/ patient. Pulse ox on. NIBP on. Warm blanket given. 15:12 No provider procedures requiring assistance completed. Inserted saline lock: 22 gauge ch in right hand, using aseptic technique. Blood collected. 15:12 Missed attempt(s): 22 gauge in left in right forearm. antecubital area. Bleeding ch controlled, band aid applied, catheter tip intact. 17:32 Gelacio Parks MD is Hospitalizing Provider. kdr 18:03 Patient admitted, IV remains in place. ch 19:17 Primary Nurse role handed off by Mallory Aleman, RN tl3 19:17 Holly Lynn, TORY is Primary Nurse. tl3 Administered Medications: 15:12 Drug: Tylenol #3 (300 mg-30 mg) 1 tablet Route: PO; ch 15:31 Follow up: Response: No adverse reaction; Marked relief of symptoms ch 18:06 Follow up: Response: No adverse reaction; Marked relief of symptoms ch 15:36 Drug: NS 0.9% 1000 ml Route: IV; Rate: 1 bolus; Site: right hand; ch 18:06 Follow up: IV Status: Completed infusion; IV Intake: 1000ml ch Intake: 18:06 IV: 1000ml; Total: 1000ml. Outcome: 17:33 Decision to Hospitalize by Provider. kdr 19:49 Admitted to Med/surg accompanied by tech, via wheelchair, with chart, Report called to tl3 Aleida SPEARS 19:49 Condition: stable 19:49 Instructed on the need for admit, Demonstrated understanding of instructions. 20:31 Patient left the ED. tl3 Signatures: Mallory Aleman RN RN Racquel Jacobo RN RN aj Rittger, Kevin, MD MD kdr Rivera, Maria mr Lowrey, Tammy, RN RN tl3 Corrections: (The following items were deleted from the chart) 14:16 14:12 Acuity: JARVIS 3 aj aj 18:05 16:17 Patient did not have IV access during this emergency room visit. tl3
--- NOTE | 2018-01-05 17:34 | EDPHYS ---
Physician Documentation [facility] Name: Willian De Age: 67 yrs Sex: Male : 1950 Arrival Date: 01/05/2018 Time: 14:11 Bed 23 Private MD: Gelacio Parks R ED Physician Deshawn Avery HPI: 01/06 07:19 This 67 yrs old Male presents to ER via Wheelchair with complaints of kdr Abdominal Pain, Leg Pain. 07:19 The patient presents with pain, that is acute, weakness, secondary to pain. The kdr complaints affect the left quadriceps, right quadriceps. Context: The problem was sustained at home, resulted from Possible connection to current chemotherapy, the patient can fully bear weight, the patient is able to ambulate, with mild difficulty, Problem is a result from a previous injury: No. Onset: The symptoms/episode began/occurred gradually, 2 day(s) ago. Modifying factors: The symptoms are alleviated by nothing. the symptoms are aggravated by movement, weight bearing. Associated signs and symptoms: Pertinent positives: Generalized weakness and fatigue. Treatment prior to arrival includes: no previous treatment. Severity of symptoms: At their worst the symptoms were mild, in the emergency department the symptoms are unchanged. The patient has not experienced similar symptoms in the past. The patient has been recently seen by a physician: the patient's primary care provider. The discomfort may be related to current chemotherapy. Historical: - Allergies: 01/05 14:14 No Known Allergies; aj - Home Meds: 14:14 azithromycin 250 mg Oral tab 1 tab once daily [Active]; Guaifenesin DM Oral every 8 aj hours [Active]; pantoprazole 40 mg Oral TbEC 1 tab once daily [Active]; - PMHx: 14:14 Anxiety; chemotherapy; CVA; Hypertension; Lung Cancer; aj - PSHx: 14:14 L arm surgery to remove blood clot; aj - Immunization history:: Adult Immunizations up to date. - Social history:: Smoking status: Patient/guardian denies using tobacco. - Ebola Screening: : Patient negative for fever greater than or equal to 101.5 degrees Fahrenheit, and additional compatible Ebola Virus Disease symptoms Patient denies exposure to infectious person Patient denies travel to an Ebola-affected area in the 21 days before illness onset No symptoms or risks identified at this time. ROS: 01/06 07:19 Constitutional: Negative for fever, chills, and weight loss, Eyes: Negative for injury, kdr pain, redness, and discharge, ENT: Negative for injury, pain, and discharge, Neck: Negative for injury, pain, and swelling, Cardiovascular: Negative for chest pain, palpitations, and edema, Respiratory: Negative for shortness of breath, cough, wheezing, and pleuritic chest pain, Abdomen/GI: Negative for abdominal pain, nausea, vomiting, diarrhea, and constipation, Back: Negative for injury and pain, : Negative for injury, bleeding, discharge, and swelling, Skin: Negative for injury, rash, and discoloration, Neuro: Negative for headache, weakness, numbness, tingling, and seizure activity. Psych: Negative for depression, anxiety, suicide ideation, homicidal ideation, and hallucinations, Allergy/Immunology: Negative for hives, rash, and allergies, Endocrine: Negative for neck swelling, polydipsia, polyuria, polyphagia, and marked weight changes, Hematologic/Lymphatic: Negative for swollen nodes, abnormal bleeding, and unusual bruising. MS/extremity: Positive for pain, The patient c/o generalized pain and weakness to his thighs primarily when he is bearing weight. 07:19 Abdomen/GI: Positive for abdominal pain, of the epigastric area. kdr Exam: 07:19 Constitutional: This is a well developed, well nourished patient who is awake, alert, kdr and in no acute distress. Head/Face: Normocephalic, atraumatic. Eyes: Pupils equal round and reactive to light, extra-ocular motions intact. Lids and lashes normal. Conjunctiva and sclera are non-icteric and not injected. Cornea within normal limits. Periorbital areas with no swelling, redness, or edema. Neck: Trachea midline, no thyromegaly or masses palpated, and no cervical lymphadenopathy. Supple, full range of motion without nuchal rigidity, or vertebral point tenderness. No Meningismus. Chest/axilla: Normal chest wall appearance and motion. Nontender with no deformity. No lesions are appreciated. Cardiovascular: Regular rate and rhythm with a normal S1 and S2. No gallops, murmurs, or rubs. Normal PMI, no JVD. No pulse deficits. Respiratory: Lungs have equal breath sounds bilaterally, clear to auscultation and percussion. No rales, rhonchi or wheezes noted. No increased work of breathing, no retractions or nasal flaring. Abdomen/GI: Soft, non-tender, with normal bowel sounds. No distension or tympany. No guarding or rebound. No evidence of tenderness throughout. Back: No spinal tenderness. No costovertebral tenderness. Full range of motion. Skin: Warm, dry with normal turgor. Normal color with no rashes, no lesions, and no evidence of cellulitis. MS/ Extremity: Pulses equal, no cyanosis. Neurovascular intact. Full, normal range of motion. Neuro: Awake and alert, GCS 15, oriented to person, place, time, and situation. Cranial nerves II-XII grossly intact. Motor strength 5/5 in all extremities. Sensory grossly intact. Cerebellar exam normal. Normal gait. Psych: Awake, alert, with orientation to person, place and time. Behavior, mood, and affect are within normal limits. Vital Signs: 01/05 14:14 BP 154 / 88; Pulse 98; Resp 16; Temp 98.0; Pulse Ox 100% on R/A; Weight 84.37 kg; aj Height 6 ft. 0 in. (182.88 cm); 14:31 BP 148 / 81; Pulse 88; Resp 22; Temp 97.8; Pulse Ox 96% on R/A; Pain 6/10; ch 16:00 BP 142 / 94; Pulse 86; Resp 15; Temp 98.1; Pulse Ox 99% on R/A; Pain 0/10; ch 17:04 BP 145 / 80; Pulse 79; Resp 20; Temp 98.5; Pulse Ox 99% on R/A; Pain 2/10; ch 18:03 BP 131 / 88; Pulse 82; Resp 14; Pulse Ox 99% on R/A; Pain 0/10; ch 19:17 BP 136 / 85; Pulse 81; Resp 16; Pulse Ox 100% on R/A; tl3 14:14 Body Mass Index 25.23 (84.37 kg, 182.88 cm) aj MDM: 17:33 Patient medically screened. kdr 01/06 07:19 Data reviewed: vital signs, nurses notes, old medical records, radiologic studies. kdr Counseling: I had a detailed discussion with the patient and/or guardian regarding: the historical points, exam findings, and any diagnostic results supporting the discharge/admit diagnosis, lab results, radiology results, the need for further work-up and treatment in the hospital. 01/05 14:37 Order name: CBC with Diff; Complete Time: 15:33 kdr 01/05 14:37 Order name: Chem 7; Complete Time: 15:33 kdr 01/05 15:12 Order name: Urine Microscopic Only; Complete Time: 17:15 ch 01/05 15:12 Order name: Urine Culture 01/05 14:12 Order name: Urine Dipstick-Ancillary (obtain specimen); Complete Time: 15:31 snw 01/05 17:36 Order name: Regular EDMS 01/05 17:36 Order name: Basic Metabolic Panel EDMS 01/05 17:36 Order name: Basic Metabolic Panel EDMS 01/05 17:36 Order name: CBC with Automated Diff EDMS 01/05 17:36 Order name: CBC with Automated Diff EDMS Administered Medications: 01/05 15:12 Drug: Tylenol #3 (300 mg-30 mg) 1 tablet Route: PO; 15:31 Follow up: Response: No adverse reaction; Marked relief of symptoms 18:06 Follow up: Response: No adverse reaction; Marked relief of symptoms 15:36 Drug: NS 0.9% 1000 ml Route: IV; Rate: 1 bolus; Site: right hand; 18:06 Follow up: IV Status: Completed infusion; IV Intake: 1000ml Disposition: 01/05/18 17:33 Hospitalization ordered by Gelacio Parks for Observation. Preliminary diagnosis are Hypo-osmolality and hyponatremia, Pain in left leg, Pain in right leg, Abdominal and pelvic pain. - Bed requested for Telemetry/MedSurg (observation). - Status is Observation. tl3 - Condition is Fair. - Problem is new. - Symptoms have improved. UTI on Admission? No Signatures: Dispatcher [employer] EDMS Mallory Aleman RN RN ch Lewis, Kimberly, RN RN kl Myers, Amanda, RN RN aj Rittger, Kevin, MD MD kdr Therrien, Shelly, ANGIOGRAPHER-C ANGIOGRAPHER-Csnw Holly Lynn RN RN tl3 Corrections: (The following items were deleted from the chart) 14:40 14:12 Urine Culture+BA.LAB.BRZ ordered. EDMS EDMS 14:40 14:12 UA MICROSCOPIC+U.LAB.BRZ ordered. EDIN EDMS 19:44 17:33 Hospitalization Ordered by Gelacio Parks MD for Observation. Preliminary diagnosis kl is Hypo-osmolality and hyponatremia; Pain in left leg; Pain in right leg; Abdominal and pelvic pain. Bed requested for Telemetry/MedSurg (observation). Status is Observation. Condition is Fair. Problem is new. Symptoms have improved. UTI on Admission? No. kdr 20:31 19:44 01/05/2018 17:33 Hospitalization Ordered by Gelacio Parks MD for Observation. tl3 Preliminary diagnosis is Hypo-osmolality and hyponatremia; Pain in left leg; Pain in right leg; Abdominal and pelvic pain. Bed requested for Telemetry/MedSurg (observation). Status is Observation. Condition is Fair. Problem is new. Symptoms have improved. UTI on Admission? No. kl
[2018-01-05] MEDS ORDERED: MORPHINE 4 MG/ML SYR IV PRN (18:32)
[2018-01-05 20:17] VITALS: BMI 24.0
[2018-01-05] MEDS: NA CHLORIDE 0.9% 1,000 ML IV SCH (22:43)
[2018-01-06 04:51] LABS: Absolute Lymphocytes (CBC) 0.6 K/uL (0.7-4.9); Absolute Monocytes 0.6 K/uL (0.1-1.3); Absolute Neutrophil 3.7 K/uL (1.8-8.0); Basophils % 0.3 % (0-1.3); Eosinophils % 3.8 % (0-4.4); Hematocrit 33.7 % (39.6-49.0); Lymphocytes % 11.2 % (15.3-44.8); MCH 34.6 pg (27.0-35.0); MCV 98.3 fL (80-100); MPV 7.8 fL (7.6-11.3); Monocytes % 12.1 % (3.3-12.3); RBC Red Blood Cell Count 3.42 M/uL (4.33-5.43)
[2018-01-06 05:05] LABS: BUN Blood Urea Nitrogen 5 mg/dL (7-18); Bicarbonate 28 mmol/L (21-32); Glucose Level 93 mg/dL (74-106); Potassium 3.7 mmol/L (3.5-5.1); Sodium Level 126 mmol/L (136-145)
[2018-01-06] MEDS: NA CHLORIDE 0.9% 1,000 ML IV SCH ×3 (05:46→23:59)
[2018-01-06] MEDS: VALSARTAN 80 MG TAB PO SCH (10:13)
[2018-01-06] MEDS: APIXABAN 5 MG TABLET PO SCH ×2 (10:14→20:44)
[2018-01-06] MEDS: PANTOPRAZOLE 40MG TABLET PO SCH (10:14)
[2018-01-06] MEDS: ALPRAZOLAM 0.5 MG TABLET PO SCH (20:44)
[2018-01-07] MEDS ORDERED: Meropenem 500 MG VIAL IV SCH (09:00)
--- NOTE | 2018-01-07 09:51 | HP ---
Date of Admission: 01/06/2018 Chief Complaint: Weakness. History Of Present Illness: A 67-year-old male who is known to have metastatic lung cancer was broug ht to the emergency room because of weakness. The patient was found to have severe hyponatremia with a sodium of 122. The patient is admitted for observation. There is no history of chest pain or oth er cardiovascular symptoms. Past Medical History: Positive for hypertension; metastatic lung cancer, on chemotherapy; old CVA; a nxiety. Other problems include history of DVT, left arm. Review of Systems: The patient denied any history of fever, chills, or rigors. Physical Examination: General: A 67-year-old male, fully alert and oriented. Vital Signs: Normal. HEENT: Negative. Neck: Supple. JVD negative. Chest: Bilateral wheezes. Heart: Regular. Abdomen: Soft. Extremities: No edema. Laboratory Data: White count at admission was 7.5, hemoglobin 13.1. Chem profile: Sodium 122, BUN/ creatinine normal. Assessment: 1.Severe hyponatremia. 2.Lung metastatic cancer, on chemotherapy. 3.Hypertension. 4.Old cerebrovascular accident. Plan: Normal saline. Followup Chem profile. To restart his regular medicines. ESTELLE/MOR Voice ID: [id number]
[2018-01-07] MEDS: VALSARTAN 80 MG TAB PO SCH (10:24)
[2018-01-07] MEDS: PANTOPRAZOLE 40MG TABLET PO SCH (10:24)
[2018-01-07] MEDS: APIXABAN 5 MG TABLET PO SCH ×2 (10:24→21:15)
[2018-01-07] MEDS: Meropenem 500 MG in NA CHLORIDE 0.9% 100 ML IV SCH ×2 (10:28→18:44)
[2018-01-07] MEDS: NA CHLORIDE 0.9% 1,000 ML IV SCH ×2 (10:29→21:17)
[2018-01-07] MEDS: ALPRAZOLAM 0.5 MG TABLET PO SCH (21:15)
[2018-01-08] MEDS: Meropenem 500 MG in NA CHLORIDE 0.9% 100 ML IV SCH ×3 (00:19→17:36)
[2018-01-08 05:26] LABS: BUN Blood Urea Nitrogen 4 mg/dL (7-18); Bicarbonate 25 mmol/L (21-32); Glucose Level 93 mg/dL (74-106); Potassium 3.8 mmol/L (3.5-5.1); Sodium Level 128 mmol/L (136-145)
[2018-01-08] MEDS: NA CHLORIDE 0.9% 1,000 ML IV SCH ×3 (09:05→18:26)
[2018-01-08] MEDS: VALSARTAN 80 MG TAB PO SCH (09:06)
[2018-01-08] MEDS: APIXABAN 5 MG TABLET PO SCH ×2 (09:06→21:51)
[2018-01-08] MEDS: PANTOPRAZOLE 40MG TABLET PO SCH (09:09)
[2018-01-08] MEDS: NITROFURAN MACRO 100 MG CAP PO SCH (21:51)
[2018-01-08] MEDS: ALPRAZOLAM 0.5 MG TABLET PO SCH (21:51)
--- NOTE | 2018-01-09 00:58 | PN ---
The patient's urine cultures are back, it is E coli, it is sensitive to nitrofurantoin. Antibiotics have been changed and he will be discharged in a.m. The chem-7 looks better. ESTELLE/MOR Voice ID: [id number] Report ID: [id number]
[2018-01-09] MEDS: NA CHLORIDE 0.9% 1,000 ML IV SCH ×3 (04:16→20:45)
[2018-01-09 05:43] LABS: BUN Blood Urea Nitrogen 4 mg/dL (7-18); Bicarbonate 26 mmol/L (21-32); Glucose Level 110 mg/dL (74-106); Potassium 3.4 mmol/L (3.5-5.1); Sodium Level 124 mmol/L (136-145)
[2018-01-09] MEDS ORDERED: POTASSIUM 25 MEQ EFFERV TAB PO ONE (08:44)
[2018-01-09] MEDS: PANTOPRAZOLE 40MG TABLET PO SCH (09:37)
[2018-01-09] MEDS: NITROFURAN MACRO 100 MG CAP PO SCH ×2 (09:37→20:44)
[2018-01-09] MEDS: VALSARTAN 80 MG TAB PO SCH (09:37)
[2018-01-09] MEDS: APIXABAN 5 MG TABLET PO SCH ×2 (09:37→20:44)
[2018-01-09] MEDS: ALPRAZOLAM 0.5 MG TABLET PO SCH (20:44)
--- NOTE | 2018-01-10 00:43 | PN ---
The patient clinically is doing better. However, his sodium is still low. The patient is put on ora l antibiotic in place of meropenem due to urine culture sensitivity report. The patient will be put on strict 800 cc oral fluid limitation and his C7 will be repeated to see whether that will resolve t he problem. However, because of his metastatic cancer, he may have SIADH. ESTELLE/MOR Voice ID: [id number] Report ID: [id number]
[2018-01-10] MEDS: NA CHLORIDE 0.9% 1,000 ML IV SCH ×2 (04:40→17:00)
[2018-01-10] MEDS: VALSARTAN 80 MG TAB PO SCH (10:03)
[2018-01-10] MEDS: NITROFURAN MACRO 100 MG CAP PO SCH ×2 (10:03→20:55)
[2018-01-10] MEDS: PANTOPRAZOLE 40MG TABLET PO SCH (10:03)
[2018-01-10] MEDS: APIXABAN 5 MG TABLET PO SCH ×2 (10:04→20:55)
[2018-01-10 10:34] LABS: BUN Blood Urea Nitrogen 5 mg/dL (7-18); Bicarbonate 25 mmol/L (21-32); Glucose Level 101 mg/dL (74-106); Potassium 3.8 mmol/L (3.5-5.1); Sodium Level 125 mmol/L (136-145)
[2018-01-10] MEDS: ALPRAZOLAM 0.5 MG TABLET PO SCH (20:55)
--- NOTE | 2018-01-10 22:03 | PN ---
The patient is doing okay. His sodium is still 125. The patient is already on oral restricted diet in view of his metastatic cancer. It is possible that the patient may need additional measures for c ontrolling the hyponatremia, the patient will have Nephrology consultation if it does not improve zelda orrow. ESTELLE/MOR Voice ID: [id number] Report ID: [id number]
[2018-01-11] MEDS: NA CHLORIDE 0.9% 1,000 ML IV SCH ×3 (02:05→22:54)
[2018-01-11] MEDS: APIXABAN 5 MG TABLET PO SCH ×2 (10:04→22:56)
[2018-01-11] MEDS: PANTOPRAZOLE 40MG TABLET PO SCH (10:04)
[2018-01-11] MEDS: NITROFURAN MACRO 100 MG CAP PO SCH ×2 (10:04→22:55)
[2018-01-11] MEDS: VALSARTAN 80 MG TAB PO SCH (10:04)
[2018-01-11 10:36] LABS: BUN Blood Urea Nitrogen 5 mg/dL (7-18); Bicarbonate 28 mmol/L (21-32); Glucose Level 106 mg/dL (74-106); Potassium 3.7 mmol/L (3.5-5.1); Sodium Level 125 mmol/L (136-145)
[2018-01-11] MEDS: ALPRAZOLAM 0.5 MG TABLET PO SCH (22:56)
--- NOTE | 2018-01-12 02:45 | PN ---
The patient continues to have hyponatremia in spite of fluid restriction as well as IV normal saline. Nephrology consultation has been done to see whether he would require 3% sodium chloride IV or othe r measures need to be instituted. In view of his metastatic cancer, it is possible that the patient may have difficulty in maintaining normal sodium level. ESTELLE/MOR Voice ID: [id number] Report ID: [id number]
[2018-01-12] MEDS: NA CHLORIDE 0.9% 1,000 ML IV SCH ×2 (07:57→20:00)
[2018-01-12] MEDS: NITROFURAN MACRO 100 MG CAP PO SCH ×2 (10:21→20:09)
[2018-01-12] MEDS: APIXABAN 5 MG TABLET PO SCH ×2 (10:23→20:09)
[2018-01-12] MEDS: VALSARTAN 80 MG TAB PO SCH (10:23)
[2018-01-12] MEDS: PANTOPRAZOLE 40MG TABLET PO SCH (10:24)
[2018-01-12] MEDS: SODIUM CHLORIDE 1 GM TAB PO SCH ×2 (15:06→20:07)
--- NOTE | 2018-01-12 18:15 | PN ---
The patient's sodium is still low. The patient is restricting his oral fluids and he is on IV normal saline. Nephrology consultation has been done to see whether he would need 3% sodium chloride infus ion or other measures to correct his hyponatremia. RRK/MODL Voice ID: [id number] Report ID: [id number]
[2018-01-12 19:34] LABS: Urine Appearance CLEAR; Urine Bilirubin NEGATIVE (NEG); Urine Blood NEGATIVE (NEG); Urine Color DK YELLOW; Urine Glucose NEGATIVE (NEG); Urine Protein NEGATIVE (NEG)
[2018-01-12 19:38] LABS: Urine Microscopic Reflex NO UMIC
[2018-01-12] MEDS: ALPRAZOLAM 0.5 MG TABLET PO SCH (20:08)
[2018-01-13] MEDS: NA CHLORIDE 0.9% 1,000 ML IV SCH ×2 (03:58→14:15)
--- NOTE | 2018-01-13 03:59 | CON ---
Date of Consultation: 01/12/2018 Reason For Consultation: Hyponatremia. History Of Present Illness: This is a 67-year-old gentleman with significant past medical history of hypertension; lung CA with metastasis, on chemotherapy, received 4 cycles; CVA without any residual. The patient came to the hospital complaining of some weakness, lethargic, found to have hyponatremi a. For that reason, the patient was admitted. The patient said he has been taking nonsteroids 1-2 t ablets daily. The patient had no poor intake. No nausea. No vomiting. No abdominal pain. Past Medical History: Includes: 1.Hypertension. 2.Lung CA. 3.CVA. Social History: Denied alcohol. Denied drugs of abuse. Family History: Positive for hypertension. Allergies: NO KNOWN DRUG ALLERGIES. Review of Systems: Head and Neck: No red eye. No ear pain. GI: No nausea, no vomiting. : No polyuria. No dysuria. No hematuria. MIS SPECIALIST: Not applicable. Respiratory: He has shortness of breath. Cardiovascular: No chest pain. Endocrine: No polydipsia. Skin: No rash. Physical Examination: General: When I saw the patient, the patient lying in bed. Vital Signs: Blood pressure 146/85, pulse of 88. Chest: Clear to auscultation. Heart: S1, S2. Regular. Systolic murmur. Abdomen: Soft, nontender. Extremities: No edema. Neuro: Alert and oriented x3. Nonfocal. Laboratory Data: WBC 5.1, H and H 11.8/33.7, and platelets of 143. Sodium 125, potassium 3.7, bicar b 28, BUN 5, creatinine 0.5, calcium of 9. Cortisol level of 16. Urinalysis, specific gravity of 1. 010. Current Medications: The patient on include; 1.Macrobid. 2.Eliquis. 3.Valsartan 160. 4.Tylenol. 5.Alprazolam. 6.IV fluid. Normal saline at 100 per hour. Assessment And Plan: 1.Hyponatremia, secondary to syndrome of inappropriate secretion of antidiuretic hormone, secondary to paraneoplastic. I am going to start the patient on salt tablet and Lasix, and we will monitor the patient. Place the patient on a fluid restriction and we will follow up. 2.Hypertension, controlled, optimal. Continue current medication. 3.Lung carcinoma, as by primary. KVNG Voice ID: [id number] Report ID: [id number]
[2018-01-13 11:19] LABS: BUN Blood Urea Nitrogen 5 mg/dL (7-18); Bicarbonate 24 mmol/L (21-32); Glucose Level 89 mg/dL (74-106); Phosphorus 3.2 mg/dL (2.5-4.9); Potassium 3.6 mmol/L (3.5-5.1); Sodium Level 123 mmol/L (136-145)
[2018-01-13] MEDS: VALSARTAN 80 MG TAB PO SCH (14:18)
[2018-01-13] MEDS: NITROFURAN MACRO 100 MG CAP PO SCH ×2 (14:19→21:00)
[2018-01-13] MEDS: FUROSEMIDE 20 MG/ 2ML VIAL IV SCH (14:20)
[2018-01-13] MEDS: SODIUM CHLORIDE 1 GM TAB PO SCH ×3 (14:20→21:35)
[2018-01-13] MEDS: PANTOPRAZOLE 40MG TABLET PO SCH (14:21)
[2018-01-13] MEDS: APIXABAN 5 MG TABLET PO SCH ×2 (14:22→21:36)
[2018-01-13] MEDS: ALPRAZOLAM 0.5 MG TABLET PO SCH (21:35)
--- NOTE | 2018-01-14 00:57 | PN ---
Date of Progress Note: 01/13/2018 Subjective: The patient was admitted with symptomatic hyponatremia. The patient sodium did not impr ove, yesterday was started on salt tablet, received so far 1 g b.i.d. with Lasix. Sodium is still lo w. The patient maintained on IV fluid. Physical Examination: Vital Signs: When I saw the patient, blood pressure 144/85, pulse of 88. Chest: Faint crackles in the base. Heart: S1, S2. Regular. Abdomen: Soft, nontender. Extremities: No edema. Laboratory Data: H and H 11.8/33.7. Sodium 123, potassium 3.6, bicarb 24, BUN 5, and creatinine 0.5 . Urinalysis; specific gravity of 1.010, urine sodium 144, and potassium 21. Current Medications: The patient is on salt tablet 1 g b.i.d., Lasix, and normal saline. 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 I am going to go ahead and discontin ue IV fluid, continue Lasix, increase salt to 2 g b.i.d. and we will monitor. 2.Hypertension, controlled optimal. Continue current medication. 3.Hypokalemia. We will supplement. HOANG/MOR Voice ID: [id number] Report ID: [id number]
[2018-01-14 05:59] LABS: Albumin 3.1 g/dL (3.4-5.0); BUN Blood Urea Nitrogen 7 mg/dL (7-18); Bicarbonate 26 mmol/L (21-32); Glucose Level 80 mg/dL (74-106); Phosphorus 3.1 mg/dL (2.5-4.9); Potassium 3.5 mmol/L (3.5-5.1); Sodium Level 125 mmol/L (136-145)
[2018-01-14] MEDS: FUROSEMIDE 20 MG/ 2ML VIAL IV SCH (09:26)
[2018-01-14] MEDS: SODIUM CHLORIDE 1 GM TAB PO SCH ×3 (09:26→21:56)
[2018-01-14] MEDS: VALSARTAN 80 MG TAB PO SCH (09:26)
[2018-01-14] MEDS: NITROFURAN MACRO 100 MG CAP PO SCH ×2 (09:26→21:56)
[2018-01-14] MEDS: APIXABAN 5 MG TABLET PO SCH ×2 (09:26→21:56)
[2018-01-14] MEDS: PANTOPRAZOLE 40MG TABLET PO SCH (09:26)
[2018-01-14] MEDS: levoFLOXacin 500 MG TAB PO SCH (14:32)
[2018-01-14 19:13] LABS: Urine Appearance CLEAR; Urine Blood NEGATIVE (NEG); Urine Color ORANGE; Urine Glucose NEGATIVE (NEG); Urine Protein NEGATIVE (NEG)
[2018-01-14 19:31] LABS: Urine Microscopic Reflex ORDER UMIC
[2018-01-14 19:32] LABS: Urine Bilirubin 2+ (NEG)
[2018-01-14 19:45] LABS: Urine Amorphous Sediment 1+ /HPF (NONE SEEN); Urine Bacteria 20-50 /HPF (NONE SEEN); Urine Culture Reflex Order REFLEXED; Urine RBC <5 /HPF (NONE SEEN)
--- NOTE | 2018-01-14 21:04 | PN ---
The patient is on oral sodium chloride as well as IV and furosemide. His sodium is still low. The p atient is on higher dose of sodium chloride. It will be rechecked tomorrow. ESTELLE/MOR Voice ID: [id number] Report ID: [id number]
[2018-01-14] MEDS: ALPRAZOLAM 0.5 MG TABLET PO SCH (21:56)
--- NOTE | 2018-01-14 22:14 | PN ---
Date of Progress Note: 01/14/2018 Subjective: The patient feeling better. No nausea. No vomiting. The patient IV fluid was discontinued yesterday. The salt tablet has been increased. Continue on the Lasix. Objective: Vital Signs: When I saw the patient, blood pressure 123/80 , pulse of 100. Afebrile. The patient has good urine output voiding. Chest: Faint crackles on the left base. Heart: S1, S2. Systolic murmur. Abdomen: Soft, nontender. Extremities: No edema. Laboratory Data: H and H 11.8/33.7, sodium 125, potassium 3.5, bicarb 26, BUN 7 , creatinine 0.6, calcium 8.8 phosphorous 3.1. Medications: Current medications the patient on, 1. Lasix 20 mg daily. 2. Salt tablet 2 g with each meal. 3. Alprazolam. 4. Macrobid. Assessment And Plan: 1. 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 I am going to continue salt tablet 2 g 3 times a day with Lasix. If sodium did not improve tomorrow, the patient will need to be started on salt tab and will follow up. 2. Urinary tract infection. We agree with Macrobid. 3. Wound infection secondary to Pseudomonas. Start the patient on Levaquin. 4. Lung carcinoma, as by primary. KVNG Voice ID: [id number] Report ID: [id number] LITO
[2018-01-15 05:44] LABS: Albumin 3.2 g/dL (3.4-5.0); BUN Blood Urea Nitrogen 9 mg/dL (7-18); Bicarbonate 28 mmol/L (21-32); Glucose Level 84 mg/dL (74-106); Phosphorus 3.3 mg/dL (2.5-4.9); Potassium 4.1 mmol/L (3.5-5.1); Sodium Level 129 mmol/L (136-145)
[2018-01-15] MEDS: VALSARTAN 80 MG TAB PO SCH (09:00)
[2018-01-15] MEDS: levoFLOXacin 500 MG TAB PO SCH (09:00)
[2018-01-15] MEDS: APIXABAN 5 MG TABLET PO SCH ×2 (09:00→20:59)
[2018-01-15] MEDS: NITROFURAN MACRO 100 MG CAP PO SCH ×2 (09:00→21:00)
[2018-01-15] MEDS: SODIUM CHLORIDE 1 GM TAB PO SCH ×3 (09:00→20:59)
[2018-01-15] MEDS: PANTOPRAZOLE 40MG TABLET PO SCH (09:00)
[2018-01-15] MEDS: FUROSEMIDE 20 MG/ 2ML VIAL IV SCH (09:00)
--- NOTE | 2018-01-15 20:30 | PN ---
Date of Progress Note: 01/15/2018 NEPHROLOGY FOLLOW UP Subjective: The patient doing well. No nausea. No vomiting. Tolerating his diet. Objective: Vital Signs: When I saw the patient, blood pressure 130/80, pulse 96, afebrile Chest: Faint crackles, bilateral. Heart: S1 and S2. Regular. Systolic murmur Abdomen: Soft, nontender. Extremities: No edema. Laboratory Data: H and H 11.8/3.7. Sodium 129, potassium 4.1, bicarb 28, BUN 19, creatinine 0.7, ca lcium 9.3, phos 3.3. Current Medications: The patient on salt tablet 2 g to t.i.d., Lasix 20 daily, xanax, Levaquin, Macr obid, Valsartan. Assessment And Plan: 1.Hyponatremia, paraneoplastic, SIADH, recovering. I am going to continue salt tablet as 2 g t.i.d. and with the Lasix patient can be okay to be discharged. To follow up in the office in 2-3 weeks [facility] chemistry. 2.Hypertension, controlled, optimal. Continue current medication. Continue the Lasix 20 mg. 3.Lung CA as by the primary. 4.Cellulitis, continue Levaquin. 5.Urinary tract infection. Continue Macrobid. KVNG Voice ID: [id number] Report ID: [id number]
[2018-01-15] MEDS: ALPRAZOLAM 0.5 MG TABLET PO SCH (21:00)
--- NOTE | 2018-01-16 01:58 | PN ---
Subjective: The patient is doing better with the bedsore on the sacral area, is healing okay. He is afebrile. His sodium is up to 129. The patient will have repeat Chem-7 in a.m. If it looks reason able, the patient will be discharged. Assessment: 1.Hyponatremia. 2.Metastatic lung cancer. 3.Decubitus ulcer, sacral area. 4.History of cerebrovascular accident. ESTELLE/MOR Voice ID: [id number] Report ID: [id number]
[2018-01-16 05:40] LABS: Albumin 3.1 g/dL (3.4-5.0); BUN Blood Urea Nitrogen 11 mg/dL (7-18); Bicarbonate 27 mmol/L (21-32); Glucose Level 96 mg/dL (74-106); Phosphorus 3.7 mg/dL (2.5-4.9); Potassium 3.7 mmol/L (3.5-5.1); Sodium Level 131 mmol/L (136-145)
[2018-01-16] MEDS: VALSARTAN 80 MG TAB PO SCH (08:52)
[2018-01-16] MEDS: APIXABAN 5 MG TABLET PO SCH (08:53)
[2018-01-16] MEDS: FUROSEMIDE 20 MG/ 2ML VIAL IV SCH (08:53)
[2018-01-16] MEDS: PANTOPRAZOLE 40MG TABLET PO SCH (08:54)
[2018-01-16] MEDS: SODIUM CHLORIDE 1 GM TAB PO SCH (08:54)
[2018-01-16] MEDS: NITROFURAN MACRO 100 MG CAP PO SCH (08:54)
[2018-01-16] MEDS: levoFLOXacin 500 MG TAB PO SCH (08:54)
[2018-01-16 08:55] VITALS: BP 132/90
[2018-01-16 11:07] VITALS: TEMP 98.2
[2018-01-16 12:16] VITALS: O2SAT 96
--- NOTE | 2018-01-17 02:44 | PN ---
Date of Progress Note: 01/16/2018 Chief Complaint: Hyponatremia and SIADH. History Of Present Illness: The patient was found to have severe hyponatremia. Sodium level was 123 , yesterday 129. Sodium level has gradually improved, on arrival to the hospital was 123. The patie nt was found to have urinary tract infection and was started on Macrobid. Hyponatremia was due to SI ADH. The patient was treated with sodium chloride tablets and Lasix. Review of Systems: Denies nausea, vomiting. Denies melena, hematemesis. Physical Examination: Lungs: Clear to auscultation bilaterally. Heart: S1, S2. Abdomen: Soft, benign. Extremities: No edema. Laboratory Data: Hemoglobin 11.8, WBC 5.1, platelet count is 143,000. Sodium 131, potassium 3.7, ch loride 97, CO2 27, BUN 11, creatinine 0.7, albumin 3.1, cortisol 16.81, uric acid 2.6, TSH 1.99. Impression And Plan: 1.Hyponatremia, hypoosmolar, moderately severe, not associated with altered mental status. The doug ent will continue p.o. fluid restriction and sodium chloride tablets. He will follow up with Nephrol ogy outpatient. The patient will continue Lasix to prevent fluid overload. The patient cannot take HCTZ because of hyponatremia. 2.Hypertension. Continue to monitor blood pressure. Continue Lasix. 3.History of lung cancer per primary team and Pulmonary. 4.Cellulitis, on Levaquin. 5.Urinary tract infection. Continue treatment. DEVON/MOR Voice ID: [id number] Report ID: [id number]
== END 2018-01-16 13:00 | disposition home or self-care (01) | DRG 644 ==
LOC: ER 14:06 → ERHOLD 17:33 → 2ND 19:56 → OBSVTOIN 01-06 17:35
PROVIDERS: ADMIT Internal Medicine; ATTEND Internal Medicine
DX: E22.2 Syndrome of inappropriate secretion of antidiuretic hormone (principal); C34.90 Malignant neoplasm of unspecified part of unspecified bronchus or lung; C79.9 Secondary malignant neoplasm of unspecified site; N39.0 Urinary tract infection, site not specified; B96.20 Unspecified Escherichia coli [E. coli] as the cause of diseases classified elsewhere; L89.159 Pressure ulcer of sacral region, unspecified stage; L08.89 Other specified local infections of the skin and subcutaneous tissue; I10 Essential (primary) hypertension; B96.5 Pseudomonas (aeruginosa) (mallei) (pseudomallei) as the cause of diseases classified elsewhere; Z86.73 Personal history of transient ischemic attack (TIA), and cerebral infarction without residual deficits
CPT/HCPCS: 36415; 77336; 80048; 80069; 81003; 81015; 82435; 82533; 83935; 84132; 84300; 84443; 84550; 85025; 87070; 87077; 87086; 87088; 87186; 87205; 96360; 96361; 99285; G0378; J1940; J7030